=== PATIENT | male | born 1955 | race Caucasian/White ===

== ENCOUNTER 2023-11-11 08:28 | Inpatient (IN) ==
--- NOTE | 2023-11-11 08:39 | Emergency Department Note ---
Impression & Plan Acute blood loss anemia, Atrial fibrillation, [employer] current use of anticoagulant, Hematoma of left lower extremity ED Provider Note NAME: MALVIN ROMO AGE: 68 SEX: M : 1955 ARRIVES VIA: Walk-In INFORMANT: Patient, ED PROVIDER(S): Dante Pena MD CHIEF COMPLAINT: Leg swelling and pain MEDICAL DECISION MAKING: Patient presents due to concern for leg swelling and associated pain with significant ecchymosis to the left lower extremity. IV was established and blood work was obtained. Left lower extremity DVT ultrasound and nonvascular ultrasound obtained and the patient did receive IV morphine. Upon reassessment the patient did have improvement in his leg pain. Patient has a normal white count with hemoglobin of 8. I was able to review outpatient blood work per their [facility] portal which showed the patient did have a hemoglobin of 11 from October 21. Given this concern with patient being therapeutic on his Coumadin with an INR of 2.6 I did speak with the on-call hospitalist Mylene Parnell PA-C. The patient was admitted for observation. Ultrasound does not show any evidence of hematoma but does have swelling. No evidence of DVT. Patient's creatinine is reportedly at baseline as his most recent outpatient blood work showed a creatinine 2.3. Discussion w/ other healthcare providers: Bette Parnell PA-C and Dr. Santamaria [facility] medicine [facility] Prior /Outside records reviewed: None Differential diagnosis: Coagulopathy, hematoma, DVT, fracture, sprain, strain among others were considered Diagnostics, as interpreted by me: ECG: Normal sinus rhythm, rate of 85, normal intervals, normal axis no ST elevations. Cardiac monitoring: An order was placed for continuous cardiac monitoring. The monitor shows a rate of 85 with sinus rhythm. Patient was placed on pulse oximetry Medical decision rules: None Imaging studies: I informally interpreted the patient's vascular ultrasound which does not show obvious fluid collection with formal report to follow. HPI: Patient presents due to concern for left lower extremity swelling and bruising. The patient states that he was sent over from orthopedics and did have an outpatient procedure which included an injection to the left groin/hip area due to concern for chronic pain and associated arthritis. Patient is on aspirin Brilinta and Coumadin. Patient was told that they "hit a vein" and that he has had some associated swelling and bruising to the area. The patient does complain of increasing swelling as well as pain and discomfort. The patient does take Coumadin for known history of A-fib. He does take aspirin and Brilinta for known history of CAD most recently had a stent after a cardiac catheterization several weeks ago. The patient does have a prior history of multiple caths and stents in the past. Patient denies any falls or trauma. Patient denies any chest pains or shortness of breath no cough fevers or chills. PAST MEDICAL HISTORY: See Below PAST SURGICAL HISTORY: See Below SOCIAL HISTORY: See Below HOME MEDICATIONS: See Below ALLERGIES: See Below VITALS: See Below PHYSICAL EXAMINATION: GENERAL: NAD, non-toxic. EYE EXAM: Normal conjunctiva. PERRL, no anisocoria and EOM's grossly intact w/o pain. OROPHARYNX: Moist mucus membranes, grossly normal dentition. NECK: Trachea midline, no stridor. Supple, no nuchal rigidity, no adenopathy, non-tender. No signs of meningismus. FROM of the neck with good chin to chest and neck extension. LUNGS: Clear to auscultation. Normal chest wall mechanics. HEART: NSR, no MRG. ABDOMEN: Abdomen soft, non-tender, no masses, no rebound or guarding. BACK: No CVA TTP. SKIN: No rashes and no bruising. UPPER EXTREMITIES: Upper extremities are grossly normal. LOWER EXTREMITIES: Grossly normal, left greater than right lower extremity swelling with associated ecchymosis located to the medial and posterior aspect of the left lower extremity, good DP pulse no obvious erythema. NEURO EXAM: A&O x3, cranial nerves II-XII grossly intact, normal speech, moves all 4 extremities. 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 Beliefs That Will Affect Care: None marital status: Current Living Situation: Spouse Feels Safe at Home: Yes Assistive Devices: CPAP Allergies Allergies Allergy/AdvReac Type Severity Reaction Status Date / Time apixaban [From Eliquis] Allergy Unknown Verified 11/11/23 09:18 Beta-Blockers Allergy Palpitation Verified 11/11/23 09:18 (Beta-Adrenergic Bloc s hydromorphone [From Dilaudid] Allergy Itching Verified 11/11/23 09:18 naproxen Allergy Unknown Verified 11/11/23 09:18 verapamil Allergy Dizziness Verified 11/11/23 09:18 atorvastatin [From Lipitor] AdvReac Cramping Verified 11/11/23 09:18 of the Muscles diltiazem [From Cardizem] AdvReac Dizziness Verified 11/11/23 09:18 Home Meds Home Medications Medication Instructions Recorded Confirmed allopurinol 300 mg tablet 300 mg PO HS 11/11/23 11/11/23 aspirin 81 mg tablet,delayed 81 mg PO DAILY 11/11/23 11/11/23 release atorvastatin 80 mg tablet 80 mg PO QAM 11/11/23 11/11/23 cholecalciferol (vitamin D3) 25 25 mcg PO DAILY 11/11/23 11/11/23 mcg (1,000 unit) tablet (Vitamin D3) docusate sodium 100 mg capsule 100 mg PO QPM 11/11/23 11/11/23 (Colace) famotidine 20 mg tablet (Pepcid) 20 mg PO BID 11/11/23 11/11/23 furosemide 20 mg tablet (Lasix) 20 mg PO DAILY 11/11/23 11/11/23 gabapentin 600 mg tablet 600 mg PO HS 11/11/23 11/11/23 (Neurontin) lisinopril 10 mg tablet 10 mg PO BID 11/11/23 11/11/23 magnesium glycinate 200 mg PO BID 11/11/23 11/11/23 melatonin 10 mg tablet 10 mg PO HS 11/11/23 11/11/23 metoprolol succinate 25 mg 25 mg PO BID 11/11/23 11/11/23 tablet,extended release 24 hr (Toprol XL) ticagrelor 90 mg tablet (Brilinta) 90 mg PO BID 11/11/23 11/11/23 warfarin 2 mg tablet 2 mg PO Q OTHER DAY 11/11/23 11/11/23 warfarin 3 mg tablet 3 mg PO Q OTHER DAY 11/11/23 11/11/23 Results & Data (ED) Vital Signs Vital Signs - 24 hr 11/11/23 08:35 11/11/23 09:30 11/11/23 10:29 Temperature 36.2 C L Temperature Source Temporal Artery Scan Pulse Rate 107 H 80 Pulse Rate [Left Finger] 73 Pulse Rhythm Regular Respiratory Rate 20 18 12 Blood Pressure 106/68 Blood Pressure [Right Arm] 107/65 Blood Pressure Mean 80 Blood Pressure Mean [Right Arm] 79 Blood Pressure Position [Right Arm] Sitting Pulse Oximetry 98 98 94 Oxygen Delivery Method Room Air Room Air Room Air Sepsis Recent Fever Within 48 Hours No Sepsis New/Unexplained Change in Mental Status N/A Sepsis Action Taken by Nursing No Action Required Home Medications Current Medication List: was personally reviewed by me Laboratory Data Attestation: I reviewed the patient's lab results. 11/11/23 14:55 11/11/23 09:06 Lab Results 11/11/23 Range/Units 09:06 WBC 7.62 (4.8-10.8) K/ul RBC 2.88 L (4.70-6.10) M/uL Hgb 8.0 L (14.0-18.0) g/dl Hct 26.4 L (42.0-52.0) % MCV 91.7 (80.0-100.0) fL MCH 27.8 (25.0-34.0) pg MCHC 30.3 L (32.0-36.0) g/dL RDW Std Deviation 57.9 H (36.4-46.3) fL RDW Coeff of Gene 17.3 H (11.5-14.5) % Plt Count 241 (130-400) K/uL MPV 8.8 L (9.4-12.4) fL Immature Gran % (Auto) 0.5 % Neut % (Auto) 61.6 % Lymph % (Auto) 23.9 % [place] % (Auto) 9.3 % Eos % (Auto) 4.2 % Baso % (Auto) 0.5 % Neut # (Auto) 4.69 (1.40-6.50) K/uL Lymph # (Auto) 1.82 (1.20-3.40) K/uL [place] # (Auto) 0.71 H (0.11-0.59) K/uL Eos # (Auto) 0.32 (0.00-0.50) K/uL Baso # (Auto) 0.04 (0.00-0.20) K/uL Immature Gran # (Auto) 0.04 (0.01-0.20) K/uL Absolute Nucleated RBC 0.02 (0.00-0.12) K/uL Nucleated RBC % (auto) 0.3 % PT 26.4 H (9.0-12.0) Seconds INR 2.6 H (0.9-1.1) Sodium 138 (136-145) mmol/L Potassium 4.1 (3.5-5.1) mmol/L Chloride 107 (98-107) mmol/L Carbon Dioxide 24 (21-32) mmol/L Anion Gap 7 (3-11) BUN 36 H (6-23) mg/dl Creatinine 2.09 H (0.6-1.4) mg/dl Est Cr Clr Drug Dosing 39.9 ml/min Est GFR ( Amer) 36.6 ml/min Est GFR (Non-Af Amer) 31.6 ml/min BUN/Creatinine Ratio 17.2 (10-20) Glucose 115 H (70-99(Fasting)) mg/dl Calcium 8.7 (8.6-10.3) mg/dl Magnesium 2.0 (1.7-2.4) mg/dl Total Bilirubin 1.3 H (0.2-1.0) mg/dl AST 16 (13-39) U/L ALT 13 (7-52) U/L Alkaline Phosphatase 79 (34-104) U/L Total Protein 6.4 (6.0-8.3) gm/dl Albumin 3.6 (3.4-5.0) gm/dl Globulin 2.8 (2.5-4.0) gm/dl Albumin/Globulin Ratio 1.3 (0.9-2) TSH 3.288 (0.300-4.500) uIu/ml Administered Medications Discontinued Medications Acetaminophen (Acetaminophen 500 Mg Tab) 1,000 mg PO NOW STA Stop: 11/11/23 08:51 Last Admin: 11/11/23 09:12 Dose: 1,000 mg Documented By: HARRY Morphine Sulfate (Morphine Sulfate 4 Mg/Ml 1 Ml Carp\\Vial) 4 mg IV NOW STA Stop: 11/11/23 08:51 Last Admin: 11/11/23 09:13 Dose: 4 mg Documented By: HARRY Imaging Data Radiologist's Impression: Vascular Ultrasound 11/11/23 08:50 LEFT THIGH ULTRASOUND CLINICAL HISTORY: eval for hematoma COMPARISON STUDY: No previous studies for comparison. TECHNIQUE: Sonography of the left thigh at site of bruising and swelling was performed. FINDINGS: No well-defined fluid collection within the medial left thigh was identified to suggest hematoma. Subcutaneous edema is present. IMPRESSION: 1. No well-defined fluid collection within the left thigh to suggest hematoma by sonography. 2. Subcutaneous edema of the left thigh. ACT 112: Negative or not required by law. Electronically signed by: Reji Tran M.D. 11/11/2023 10:18 AM Venous Doppler Study 11/11/23 08:50 LEFT LOWER EXTREMITY VENOUS DOPPLER HISTORY: Left lower extremity swelling/eccchymosis COMPARISON STUDY: None. FINDINGS: There is normal compressibility, flow, and augmentation within the left lower extremity deep venous system. IMPRESSION: No DVT within the left lower extremity. ACT 112: Negative or not required by law. Electronically signed by: Maxime Quiroz M.D. 11/11/2023 10:19 AM Discharge Plan Visit Data Chief Complaint: Leg Injury/Pain Stated Complaint: L LEG PAIN/RCVD STEROID SHOT IN L HIP ED Provider: Dante Pena Discharge Problem: Acute blood loss anemia, Atrial fibrillation, [facility] current use of anticoagulant, Hematoma of left lower extremity Patient Disposition: Admitted As Inpatient Discharge Instructions Interventions: ED Discharge Assessment Last Done: 11/11/23 13:42 Discharge Problem: Atrial fibrillation Qualifiers: Atrial fibrillation type: unspecified Qualified Code(s): I48.91 - Unspecified atrial fibrillation Hematoma of left lower extremity Qualifiers: Encounter type: initial encounter Qualified Code(s): S80.12XA - Contusion of left lower leg, initial encounter
[2023-11-11] MEDS: ACETAMINOPHEN 500 MG TAB PO STA (09:12)
[2023-11-11] MEDS: MoRPHine SULFATE 4 MG/ML 1 ML CARP\\VIAL IV STA (09:13)
[2023-11-11 09:26] LABS: Basophils # (auto) 0.04 K/uL (0.00-0.20); Basophils % (auto) 0.5 %; Eosinophils # (auto) 0.32 K/uL (0.00-0.50); Eosinophils % (auto) 4.2 %; Hematocrit (blood only) 26.4 % (42.0-52.0); Immature Granulocytes # (auto) 0.04 K/uL (0.01-0.20); Immature Granulocytes % (auto) 0.5 %; Lymphocytes # (auto) 1.82 K/uL (1.20-3.40); Lymphocytes % (auto) 23.9 %; Mean Corpuscular Hemoglobin 27.8 pg (25.0-34.0); Mean Corpuscular Hgb Conc 30.3 g/dL (32.0-36.0); Mean Corpuscular Volume 91.7 fL (80.0-100.0); Mean Platelet Volume 8.8 fL (9.4-12.4); Monocytes # (auto) 0.71 K/uL (0.11-0.59); Monocytes % (auto) 9.3 %; Neutrophils # (auto) 4.69 K/uL (1.40-6.50); Neutrophils % (auto) 61.6 %; Nucleated RBC # (auto) 0.02 K/uL (0.00-0.12); Nucleated RBC % (auto) 0.3 %; Platelet Count 241 K/uL (130-400); RDW Coefficient of Variation 17.3 % (11.5-14.5); RDW Standard Deviation 57.9 fL (36.4-46.3); Red Blood Count 2.88 M/uL (4.70-6.10); White Blood Count 7.62 K/ul (4.8-10.8)
[2023-11-11 09:39] LABS: Albumin Globulin Ratio 1.3 (0.9-2); Albumin Level 3.6 gm/dl (3.4-5.0); BUN Creatinine Ratio 17.2 (10-20); Bilirubin,Total 1.3 mg/dl (0.2-1.0); Calcium 8.7 mg/dl (8.6-10.3); Creatinine Clr Calc Pharmacy 39.9 ml/min; Est GFR (African American) 36.6 ml/min; Est GFR (Non-African American) 31.6 ml/min; Globulin 2.8 gm/dl (2.5-4.0); Potassium 4.1 mmol/L (3.5-5.1); Total Protein 6.4 gm/dl (6.0-8.3)
[2023-11-11 09:50] LABS: INR 2.6 (0.9-1.1); Prothrombin Time 26.4 Seconds (9.0-12.0)
[2023-11-11 09:53] LABS: Thyroid Stimulating Hormone 3.288 uIu/ml (0.300-4.500)
--- NOTE | 2023-11-11 10:19 | Ultrasound Report ---
LEFT THIGH ULTRASOUND CLINICAL HISTORY: eval for hematoma COMPARISON STUDY: No previous studies for comparison. TECHNIQUE: Sonography of the left thigh at site of bruising and swelling was performed. FINDINGS: No well-defined fluid collection within the medial left thigh was identified to suggest hem atoma. Subcutaneous edema is present. IMPRESSION: 1. No well-defined fluid collection within the left thigh to suggest hematoma by sonography. 2. Subcutaneous edema of the left thigh. ACT 112: Negative or not required by law. Electronically signed by: Reji Tran M.D. 11/11/2023 10:18 AM
--- NOTE | 2023-11-11 10:20 | Ultrasound Report ---
LEFT LOWER EXTREMITY VENOUS DOPPLER HISTORY: Left lower extremity swelling/eccchymosis COMPARISON STUDY: None. FINDINGS: There is normal compressibility, flow, and augmentation within the left lower extremity nusrat p venous system. IMPRESSION: No DVT within the left lower extremity. ACT 112: Negative or not required by law. Electronically signed by: Maxime Quiroz M.D. 11/11/2023 10:19 AM
[2023-11-11] MEDS ORDERED: MoRPHine SULFATE 4 MG/ML 1 ML CARP\\VIAL IV PRN (11:42)
--- NOTE | 2023-11-11 12:26 | History & Physical Report ---
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 Acute on chronic anemia in setting of blood loss due to use of anticoagulants and recent left intra-articular hip injection Admit to telemetry Hemoglobin on 10/21 was 7.5, today 8.0 Patient was typed and crossed Blood consent obtained by Dr. Santamaria Tranfuse if hgb < 7 Warfarin, INR 2.6 will not give Vit k at this time but will be considered if hgb is downtrending unable to interrupt ASA, brilinta as pt recently had coronary intervention 10/2023 at [facility] Consult orthopedics Dr. Farias for further recommendations regarding possible hematoma CAD with history of multiple coronary inventions, most recently October 2023 patient underwent LAD angioplasty secondary to in-stent restenosis of LAD HTN HLD He follows [facility] cardiology Will obtain records, recent cath report On ASA, Brilinta, statin, lisinopril and metoprolol PAF Regular rate and rhythm On warfarin, continue metoprolol monitor on tele History of DVT/PE Warfarin on hold Follow INR CKD stage III Presence of left AV fistula Previously required hemodialysis Currently off HD, following nephrology Baseline creatinine 2.0 Avoid nephrotoxic agent Morbid obesity, BMI 40.1 Encourage diet lifestyle medications DVT prophylaxis: Warfarin on hold, INR 2.6 FULL CODE PCP: Memo Mancilla Dispo: admit to Tele, PT/OT consulted Pt was seen and examined in collaboration with Dr. Santamaria, please see addendum A total of 76 minutes was spent coordinating, documenting, and providing care for this patient excluding time spent in the performance of separately billed services. This included personally viewing all current laboratories and imaging studies, medication reconciliation, outpatient chart review, and discussion with specialists. History of Present Illness Chief Complaint: L leg pain, bruising for a few days. Primary Care Provider: Memo Mancilla This is a 61 male who has a significant past medical history of PAF anticoagulated on warfarin, history of DVT/PE, CAD with history of multiple angioplasties most recently October 2023 secondary to stent restenosis on ASA and Brilinta, CKD-3, HTN, HLD presents to ED secondary to left leg pain and bruising for the last few days. He had a hip injection on Thursday on 11/06 at [facility]. He states he was told he was getting an ultrasound to see where they wanted to inject. He received an injection of lidocaine and dexamethasone. He was not instructed to hold any of his anticoagulants or antiplatelets prior to injection. He is currently on warfarin, asa and brilinta. He complains of Pain to his L leg and, "feeling like it is going to burst." He does feel like it gives out on him from time to time. Generally he feels weak but he denies f/c/s, chest pain, sob, n/v/d, abd pain. He further denies pre syncope, lightheaded/dizziness. is at bedside who helps elicit history. She also pulls up patients online medical record via [facility]. His last lab work on 10/21 revealed a hgb of 11.5 and cr 2.18. Last heart cath in October in 2023 in which he required stent placement. Per report patient had notable and heavily calcified in-stent restenosis of LAD and therefore underwent angioplasty. Also noted was a 99% severe OM disease and patent RCA stents. Ejection fraction was normal. He also had a heart cath in February of 2023. He states he had appox 10 stents total throughout his life time. He is moving bowels and passing urine w/o difficulty. When he moves his bowels he states he sees, "red in the toilet every once in a while." He has hx of colonoscopy 1 year ago and had some polyps removed. He has LUE AVF due to previously requiring HD, but currently is off of this. 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 His [facility] Senior Product Development Engineer is Dr Brizuela. He does not see any providers locally. In ED patient remained hemodynamically stable. His hemoglobin and hematocrit was 8.0 and 26.4 respectively. His INR was therapeutic at 2.6. His kidney function is at baseline with a BUN of 36 and creatinine 2.09. Lower extremity ultrasound was negative for DVT and no evidence of hematoma. Allergies Allergy/AdvReac Type Severity Reaction Status Date / Time apixaban [From Eliquis] Allergy Unknown Verified 11/11/23 09:18 Beta-Blockers Allergy Palpitation Verified 11/11/23 09:18 (Beta-Adrenergic Bloc s hydromorphone [From Dilaudid] Allergy Itching Verified 11/11/23 09:18 naproxen Allergy Unknown Verified 11/11/23 09:18 verapamil Allergy Dizziness Verified 11/11/23 09:18 atorvastatin [From Lipitor] AdvReac Cramping Verified 11/11/23 09:18 of the Muscles diltiazem [From Cardizem] AdvReac Dizziness Verified 11/11/23 09:18 Home Medications Medication Instructions Recorded Confirmed Type allopurinol 300 mg tablet 300 mg PO HS 11/11/23 11/11/23 History aspirin 81 mg tablet,delayed 81 mg PO DAILY 11/11/23 11/11/23 History release atorvastatin 80 mg tablet 80 mg PO QAM 11/11/23 11/11/23 History cholecalciferol (vitamin D3) 25 25 mcg PO DAILY 11/11/23 11/11/23 History mcg (1,000 unit) tablet (Vitamin D3) docusate sodium 100 mg capsule 100 mg PO QPM 11/11/23 11/11/23 History (Colace) famotidine 20 mg tablet (Pepcid) 20 mg PO BID 11/11/23 11/11/23 History furosemide 20 mg tablet (Lasix) 20 mg PO DAILY 11/11/23 11/11/23 History gabapentin 600 mg tablet 600 mg PO HS 11/11/23 11/11/23 History (Neurontin) lisinopril 10 mg tablet 10 mg PO BID 11/11/23 11/11/23 History magnesium glycinate 200 mg PO BID 11/11/23 11/11/23 History melatonin 10 mg tablet 10 mg PO HS 11/11/23 11/11/23 History metoprolol succinate 25 mg 25 mg PO BID 11/11/23 11/11/23 History tablet,extended release 24 hr (Toprol XL) ticagrelor 90 mg tablet (Brilinta) 90 mg PO BID 11/11/23 11/11/23 History warfarin 2 mg tablet 2 mg PO Q OTHER DAY 11/11/23 11/11/23 History warfarin 3 mg tablet 3 mg PO Q OTHER DAY 11/11/23 11/11/23 History Past Med/Surg History Medical History (Updated 11/11/23 @ 14:23 by Bette Parnell PA-C) History of hemodialysis temporary Hx of pulmonary embolus Hx of deep venous thrombosis 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 Atrial fibrillation CAD (coronary artery disease) HLD (hyperlipidemia) HTN (hypertension) Surgical History (Updated 11/11/23 @ 12:28 by Bette Parnell PA-C) History of inferior vena caval filter placement AV fistula LUE History of coronary artery stent placement History of back surgery Social History (Updated 11/11/23 @ 12:19 by Betet Parnell PA-C) Smoking Status: Never smoker Hx Alcohol Use: No Hx Substance Use: No Preferred Language: Bangladeshi Communication Ability: Effective [employer] Required: No Beliefs That Will Affect Care: None marital status: Current Living Situation: Spouse Feels Safe at Home: Yes Assistive Devices: CPAP Review of Systems Review of Systems: All systems reviewed & are unremarkable except as noted in HPI & below Physical Exam Physical Exam: please refer to Dr. Santamaria addendum for physical exam findings. Results & Data Results & Data Vital Signs (Past 12 Hours) Vital Signs Temp Pulse Pulse Resp BP BP Pulse Ox 11/11/23 10:29 73 12 107/65 94 11/11/23 09:30 80 18 98 11/11/23 08:35 36.2 C L 107 H 20 106/68 98 O2 Del Method 11/11/23 10:29 Room Air 11/11/23 09:30 Room Air 11/11/23 08:35 Room Air Laboratory Results I have independently reviewed and interpreted patient's admitting labs including CBC, CMP, PT/INR, mag and TSH. Diagnostic Findings Vascular Ultrasound 11/11/23 08:50 LEFT THIGH ULTRASOUND CLINICAL HISTORY: eval for hematoma COMPARISON STUDY: No previous studies for comparison. TECHNIQUE: Sonography of the left thigh at site of bruising and swelling was performed. FINDINGS: No well-defined fluid collection within the medial left thigh was identified to suggest hematoma. Subcutaneous edema is present. IMPRESSION: 1. No well-defined fluid collection within the left thigh to suggest hematoma by sonography. 2. Subcutaneous edema of the left thigh. ACT 112: Negative or not required by law. Electronically signed by: Reji Tran M.D. 11/11/2023 10:18 AM Venous Doppler Study 11/11/23 08:50 LEFT LOWER EXTREMITY VENOUS DOPPLER HISTORY: Left lower extremity swelling/eccchymosis COMPARISON STUDY: None. FINDINGS: There is normal compressibility, flow, and augmentation within the left lower extremity deep venous system. IMPRESSION: No DVT within the left lower extremity. ACT 112: Negative or not required by law. Electronically signed by: Maxime Quiroz M.D. 11/11/2023 10:19 AM Medications Administered Medication List Discontinued Medications Acetaminophen (Acetaminophen 500 Mg Tab) 1,000 mg PO NOW STA Stop: 11/11/23 08:51 Last Admin: 11/11/23 09:12 Dose: 1,000 mg Documented By: HARRY Morphine Sulfate (Morphine Sulfate 4 Mg/Ml 1 Ml Carp\\Vial) 4 mg IV NOW STA Stop: 11/11/23 08:51 Last Admin: 11/11/23 09:13 Dose: 4 mg Documented By: HARRY ECG Additional Comments: I have independently reviewed and interpreted patient's admitting EKG which revealed: 85bpm, NSR< no St or T wave changes COVID-19 Results Results COVID-19 Adm Lab Results: RBC 2.88 M/uL (4.70-6.10) L 11/11/23 WBC 7.62 K/ul (4.8-10.8) 11/11/23 Hgb 8.0 g/dl (14.0-18.0) L 11/11/23 Hct 26.4 % (42.0-52.0) L 11/11/23 Plt Count 241 K/uL (130-400) 11/11/23 Neutrophils (%) (Auto) 61.6 % 11/11/23 Lymphocytes (%) (Auto) 23.9 % 11/11/23 Monocytes # (Auto) 0.71 K/uL (0.11-0.59) H 11/11/23 Eosinophils # (Auto) 0.32 K/uL (0.00-0.50) 11/11/23 Immature Granulocyte % (Auto) 0.5 % 11/11/23 Neutrophils # (Auto) 4.69 K/uL (1.40-6.50) 11/11/23 Lymphocytes # (Auto) 1.82 K/uL (1.20-3.40) 11/11/23 Monocytes # (Auto) 0.71 K/uL (0.11-0.59) H 11/11/23 Eosinophils # (Auto) 0.32 K/uL (0.00-0.50) 11/11/23 Basophils # (Auto) 0.04 K/uL (0.00-0.20) 11/11/23 Immature Granulocyte # (Auto) 0.04 K/uL (0.01-0.20) 4 Na 138 mmol/L (136-145) 11/11/23 K 4.1 mmol/L (3.5-5.1) 11/11/23 Cl 107 mmol/L (98-107) 11/11/23 CO2 24 mmol/L (21-32) 11/11/23 Anion Gap 7 (3-11) 11/11/23 BUN 36 mg/dl (6-23) H 11/11/23 Creatinine 2.09 mg/dl (0.6-1.4) H 11/11/23 BUN/Creatinine Ratio 17.2 (10-20) 11/11/23 Glucose Level 115 mg/dl (70-99(Fasting)) H 11/11/23 Ca 8.7 mg/dl (8.6-10.3) 11/11/23 Total Bilirubin 1.3 mg/dl (0.2-1.0) H 11/11/23 AST/SGOT 16 U/L (13-39) 11/11/23 ALT/SGPT 13 U/L (7-52) 11/11/23 Alkaline Phosphatase 79 U/L (34-104) 11/11/23 Total Protein 6.4 gm/dl (6.0-8.3) 11/11/23 Albumin 3.6 gm/dl (3.4-5.0) 11/11/23 Globulin 2.8 gm/dl (2.5-4.0) 11/11/23 Albumin/Globulin Ratio 1.3 (0.9-2) 11/11/23 INR 2.6 (0.9-1.1) H 11/11/23 Code Status & VTE Plan Code Status FULL CODE Supervising Physician Co-Signing Physician Notes I have seen and examined the patient and have discussed the case with the provider above. I have reviewed the advanced practitioner's documentation, and I agree with, and take responsibility for that plan of care. Patient is a 68-year-old man on multiple blood thinners including warfarin for paroxysmal atrial fibrillation and history of provoked DVT/PE several years ago and dual antiplatelet therapy including aspirin and Brilinta after significant in-stent restenosis was fixed with angioplasty and repeat stenting just last month. He subsequently underwent a hip injection 6 days ago with significant bleeding and subsequent anemia. He denies any shortness of breath or chest pain and denies lightheadedness. He denies any pain in his foot or paresthesia and feels he is getting good blood flow to his foot but the pain in his thigh feels "like it is going to explode." He has been taking Tylenol successfully to control his pain at home prior to arrival. expressed concerned about a history of addiction to pain medication prior to his back surgery several years ago. Hemoglobin on his [facility] records was greater than 11 on October 21, now hemoglobin is 8 with a hematocrit of 26.4. On exam he is morbidly obese and in no acute distress. He is mentating clearly. CV exam reveals a mild 3 out of 6 systolic ejection murmur on LSB. S1-S2 heard with regular rate and rhythm. Lungs are clear to auscultation bilaterally. Abdomen is soft nontender nondistended. Fistula noted in left upper extremity. He has significant purple ecchymosis on his left outer upper thigh over the greater trochanteric area extending to the lateral gluteus and around the front into the inguinal area. There is significant dark purple ecchymosis in the medial left thigh with ecchymosis extending down past the knee in a distal direction to the calf. EKG confirms sinus rhythm today. Lab work also noted above includes INR of 2.6, creatinine of 2.09 is reported to be his baseline. Records were requested but are unavailable today. Outpatient BMP from [facility] was reviewed from mid October showing a creatinine of 2.1 at that time. Lab work is otherwise unremarkable today. A venous Doppler study revealed no DVT in the left lower extremity. A left thigh ultrasound revealed no well-defined fluid collection in the left thigh to suggest hematoma by sonography. 1. Acute blood loss anemia in the setting of anticoagulants post procedure- agree with holding warfarin at this time. Cannot hold dual antiplatelet therapy given significant cardiovascular disease and recent stent placement just a couple weeks ago. Continue supportive care for pain and trend H&H for further blood loss. He was consented for blood products should the H&H become critical. He is currently asymptomatic. Continue cautious use of narcotics given history of abuse in the past. 2. Morbid obesity 3. CKD stage III-patient noted to have a fistula in the left upper extremity but is not on dialysis at this time. 4. Paroxysmal atrial fibrillation-hold warfarin. Rate is controlled and noted adverse reactions to beta-blockers and calcium channel blockers . patient follows with an outpatient professor of family medicine-Ivan at [facility] I spent a total of 30minutes coordinating, documenting, and providing care for this patient excluding time spent in the performance of separately billed services. DO Rosalio
[2023-11-11] MEDS ORDERED: SODIUM CHLORIDE 0.9% 250 ML IV PRN (13:20)
[2023-11-11] MEDS ORDERED: POLYETHYLENE (MIRALAX) 17 GM PACK PO PRN (13:51)
--- NOTE | 2023-11-11 15:01 | Electrocardiogram Report ---
Test Reason : Blood Pressure : / mmHG Vent. Rate : 085 BPM Atrial Rate : 085 BPM P-R Int : 164 ms QRS Dur : 088 ms QT Int : 378 ms P-R-T Axes : 030 003 077 degrees QTc Int : 449 ms Normal sinus rhythm Normal ECG No previous ECGs available Confirmed by Dejuan Velasco ([id number]) on 11/11/2023 3:01:23 PM Referred By: REFERRED SELF Confirmed By:Dejuan Velasco
[2023-11-11 15:14] LABS: Hematocrit (blood only) 26.6 % (42.0-52.0); Hemoglobin 8.2 g/dl (14.0-18.0)
[2023-11-11] MEDS: oxyCODONE HCL IR 5 MG TAB (IMMEDIATE RELEASE) PO PRN (16:59)
[2023-11-11] MEDS: ACETAMINOPHEN 325 MG TAB PO SCH (16:59)
[2023-11-11] MEDS: METOPROLOL SUCC 25MG EXT REL TAB PO SCH (20:46)
[2023-11-11] MEDS: FAMOTIDINE 20 MG TAB PO SCH (20:47)
[2023-11-11] MEDS: TICAGRELOR 90 MG TAB PO SCH (20:47)
[2023-11-11] MEDS: GABAPENTIN 600 MG TAB PO SCH (20:48)
[2023-11-11] MEDS: DOCUSATE SODIUM 100 MG CAP PO SCH (20:48)
[2023-11-11] MEDS: MELATONIN 3 MG TAB PO SCH (20:48)
[2023-11-11] MEDS: allopurinoL 300 MG TAB PO SCH (20:55)
[2023-11-11 21:01] LABS: Hematocrit (blood only) 24.5 % (42.0-52.0); Hemoglobin 7.7 g/dl (14.0-18.0)
[2023-11-12 06:03] LABS: Hematocrit (blood only) 24.3 % (42.0-52.0); Hemoglobin 7.2 g/dl (14.0-18.0); Mean Corpuscular Hemoglobin 27.5 pg (25.0-34.0); Mean Corpuscular Hgb Conc 29.6 g/dL (32.0-36.0); Mean Corpuscular Volume 92.7 fL (80.0-100.0); Mean Platelet Volume 8.6 fL (9.4-12.4); Platelet Count 208 K/uL (130-400); RDW Coefficient of Variation 17.3 % (11.5-14.5); RDW Standard Deviation 58.2 fL (36.4-46.3); Red Blood Count 2.62 M/uL (4.70-6.10); White Blood Count 6.73 K/ul (4.8-10.8)
[2023-11-12 06:18] LABS: BUN Creatinine Ratio 16.3 (10-20); Calcium 8.2 mg/dl (8.6-10.3); Creatinine Clr Calc Pharmacy 39.2 ml/min; Est GFR (African American) 38.1 ml/min; Est GFR (Non-African American) 32.9 ml/min; Potassium 4.4 mmol/L (3.5-5.1)
[2023-11-12 06:33] LABS: INR 2.6 (0.9-1.1); Prothrombin Time 26.6 Seconds (9.0-12.0)
[2023-11-12] MEDS ORDERED: SODIUM CHLORIDE 0.9% 250 ML IV PRN (08:15)
[2023-11-12] MEDS: ATORVASTATIN 40 MG TAB PO SCH (08:36)
[2023-11-12] MEDS: CHOLECALCIFEROL 25 MCG (1000 UNITS) TAB PO SCH (08:44)
[2023-11-12] MEDS: ACETAMINOPHEN 325 MG TAB PO ONE (08:44)
[2023-11-12] MEDS ORDERED: ASPIRIN 81 MG ECTAB PO SCH (09:00)
[2023-11-12] MEDS: PHYTONADIONE 5 MG in DEXTROSE 5% 50 ML IV ONE (09:12)
[2023-11-12] MEDS: SODIUM CHLORIDE 0.9% 1,000 ML IV SCH (09:13)
--- NOTE | 2023-11-12 09:37 | CT Scan Report ---
CT SCAN OF THE LEFT TIBIA AND FIBULA WITHOUT IV CONTRAST CLINICAL HISTORY: Left lower extremity bruising. COMPARISON STUDY: No priors. TECHNIQUE: CT scan of the left tibia and fibula is performed from the distal femur to the foot. Image s are reviewed in the axial, sagittal, and coronal planes. IV contrast was not administered for this examination. A dose lowering technique was utilized adhering to the principles of ALARA. FINDINGS: The skeletal structures are osteopenic. There is no evidence of tibial or fibular fracture. The knee and ankle joints appear maintained. There is a knee joint effusion. There is generalized at rophy of the regional musculature. Subcutaneous soft tissue edema and fluid is seen throughout the le ft lower extremity. No organized/drainable fluid collection is identified. There is no fluid collecti on, typical for hematoma. A large dorsal heel spur is noted. There is thickening and tendinopathy of the Achilles tendon. No soft tissue gas is identified throughout the left lower extremity. There is a therosclerotic calcification of the regional arteries. IMPRESSION: 1. No acute bony abnormality is identified. 2. Subcutaneous soft tissue edema and fluid is seen throughout the left calf. No organized fluid jaz ection is identified. 3. Knee joint effusion. ACT 112: Negative or not required by law. Dictated: 11/12/2023 9:23 AM Transcribed: 11/12/2023 9:30 AM Slim [id number] [email or web address] Electronically signed by: Mahendra Leonardo M.D. 11/12/2023 9:35 AM
--- NOTE | 2023-11-12 10:23 | CT Scan Report ---
ABDOMEN AND PELVIS CT WITHOUT CONTRAST; CT LEFT FEMUR HISTORY: Acute generalized abdominal and left lower quadrant pain with probable hematoma anemia, r/o retroperitoneal hemorrhage TECHNIQUE: Multiaxial CT images of the abdomen and pelvis and left femur were performed without contr ast. A dose lowering technique was utilized adhering to the principles of ALARA. COMPARISON STUDY: Ultrasound 11/11/2023. FINDINGS: CT ABDOMEN AND PELVIS: Mild cardiomegaly with decreased attenuation of the cardiac blood pool, suggestive of anemia. Coronar y arterial calcifications. Calcified granuloma of the basal right lower lobe. Mild subsegmental bibas ilar atelectasis. Low-suspicion for a millimeter solid nodule of the lingula, image 28. No free air. The unenhanced spleen, pancreas and left adrenal gland are unremarkable. A 9 mm right adrenal myeloli xavier. Unremarkable gallbladder and liver. Mildly atrophic kidneys with cortical thinning. There are s everal nonobstructing calculi of the bilateral kidneys measuring up to 4 mm on the left and 5 mm on t he right. There is a simple 2 cm cyst of the inferior pole right kidney. There are additional subcent imeter lesions of the kidneys including a 9 mm hyperdense lesion of the left kidney on image 159 sugg estive of a proteinaceous or hemorrhagic cyst. No ureteral calculi or hydronephrosis. Mild prostatome justina. Mildly distended urinary bladder. Atherosclerosis of the aorta without aneurysm. No lymphadenopathy. No bowel obstruction or bowel wall thickening. Small fat-filled umbilical hernia with diastases of 2 cm. Colonic diverticulosis. Noninf lamed appendix. No acute retroperitoneal hemorrhage is identified. Moderate degeneration of the SI tia ints. No acute fracture. There is posterior decompression at L1-S1 with posterior interbody tay and s crew fusion hardware extending from T11-S2. There is lucency surrounding the screws at almost every l evel with posterior displacement of the upper hardware, compatible with loosening. CT LEFT FEMUR: There is an acute intramuscular hematoma involving the sartorius, which measures up to approximately 7.9 x 4.9 x 20 cm. No definite active extravasation is identified. Moderate subcutaneous edema/hemorr babar within the thigh. [id number] joint effusion of the knee. No acute fracture or subluxation. There is moderate osteoarthritis of the hip with tricompartmental o steoarthritis of the knee, severe within the medial compartment. IMPRESSION: 1. There is an acute intramuscular hematoma involving the left sartorius measuring up to 20 cm in sil gth with associated moderate subcutaneous edema/hemorrhage of the left thigh. 2. No acute fracture or dislocation. 3. No acute intra-abdominal or intrapelvic abnormality, specifically there is no acute retroperitonea l hemorrhage. 4. Postoperative changes of the spine with extensive hardware loosening. 5. Incidental findings as above. ACT 112: Negative or not required by law. The above report was generated using voice recognition software. It may contain grammatical, syntax o r spelling errors. Dictated: 11/12/2023 9:37 AM Transcribed: 11/12/2023 10:02 AM Slim [id number] [email or web address] Electronically signed by: Corey Natarajan M.D. 11/12/2023 10:22 AM
--- NOTE | 2023-11-12 10:38 | Orthopedic Consultation ---
Date of Service November 12, 2023 Assessment & Plan (1) Hematoma of left lower extremity: 1. Continue current hospital course of treatment 2. No surgery to evacuate the hematoma is necessary given his current physical examination and diffuseness of the hematoma 3. No need for orthopedic follow up in the office I, Dr. Danny Farias, saw and examined the patient at bedside. I agree with the above plan. History of Present Illness Reason for Consultation: . Requesting Physician: . Attending Physician: Sebastian Onofre MD Patient is a 61 y/o with multiple health comorbidities. He is currently anticoagulated with coumadin and aspirin for PAF. He has had multiple heart stents placed. He states that he recently had an intraarticular hip injection in the left hip in October 2023. He did not stop his anticoagulants before the injection. He developed a significant and diffuse hematoma of his LLE. He was hospitalized for pain and to rule out compartment syndrome. Allergies Allergy/AdvReac Type Severity Reaction Status Date / Time apixaban [From Eliquis] Allergy Unknown Verified 11/11/23 09:18 Beta-Blockers Allergy Palpitation Verified 11/11/23 09:18 (Beta-Adrenergic Bloc s hydromorphone [From Dilaudid] Allergy Itching Verified 11/11/23 09:18 naproxen Allergy Unknown Verified 11/11/23 09:18 verapamil Allergy Dizziness Verified 11/11/23 09:18 atorvastatin [From Lipitor] AdvReac Cramping Verified 11/11/23 09:18 of the Muscles diltiazem [From Cardizem] AdvReac Dizziness Verified 11/11/23 09:18 Home Medications Medication Instructions Recorded Confirmed Type allopurinol 300 mg tablet 300 mg PO HS 11/11/23 11/11/23 History aspirin 81 mg tablet,delayed 81 mg PO DAILY 11/11/23 11/11/23 History release atorvastatin 80 mg tablet 80 mg PO QAM 11/11/23 11/11/23 History cholecalciferol (vitamin D3) 25 25 mcg PO DAILY 11/11/23 11/11/23 History mcg (1,000 unit) tablet (Vitamin D3) docusate sodium 100 mg capsule 100 mg PO QPM 11/11/23 11/11/23 History (Colace) famotidine 20 mg tablet (Pepcid) 20 mg PO BID 11/11/23 11/11/23 History furosemide 20 mg tablet (Lasix) 20 mg PO DAILY 11/11/23 11/11/23 History gabapentin 600 mg tablet 600 mg PO HS 11/11/23 11/11/23 History (Neurontin) lisinopril 10 mg tablet 10 mg PO BID 11/11/23 11/11/23 History magnesium glycinate 200 mg PO BID 11/11/23 11/11/23 History melatonin 10 mg tablet 10 mg PO HS 11/11/23 11/11/23 History metoprolol succinate 25 mg 25 mg PO BID 11/11/23 11/11/23 History tablet,extended release 24 hr (Toprol XL) ticagrelor 90 mg tablet (Brilinta) 90 mg PO BID 11/11/23 11/11/23 History warfarin 2 mg tablet 2 mg PO Q OTHER DAY 11/11/23 11/11/23 History warfarin 3 mg tablet 3 mg PO Q OTHER DAY 11/11/23 11/11/23 History Past Med/Surg History Medical History History of hemodialysis temporary Hx of pulmonary embolus 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 deep 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 Atrial fibrillation CAD (coronary artery disease) HLD (hyperlipidemia) HTN (hypertension) Surgical History History of inferior vena caval filter placement AV fistula LUE History of coronary artery stent placement History of back surgery Social History Smoking Status: Never smoker Hx Alcohol Use: No Hx Substance Use: No Preferred Language: Dominican Communication Ability: Effective 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 Physical Exam Patient examined at bedside. Resting comfortably. Diffuse eccymosis noted in upper thigh, knee, and LLE. Upper thigh and LLE are supple to palpation with no hardness. Good ROM at hip and knee. Able to dosiflex and plantarflex at the ankle. Pulses were palpated distally in the left foot. Otherwise neurovascularly intact Results & Data Results & Data Laboratory Results . Diagnostic Findings . PG Care Time/CCT Total # of Minutes Spent Total Time Spent with Patient: Total time spent is greater than 50% in coordination of care (as documented) at patient's floor/unit and/or counseling patient: Coding Level of Care Code 40332 IN/OBS CONSULT LVL 3,45M Diagnoses Hematoma of left lower extremity S80.12XA Encounter type: initial encounter (1) Hematoma of left lower extremity Encounter type: initial encounter Qualified Code(s): S80.12XA - Contusion of left lower leg, initial encounter
[2023-11-12] MEDS: PNEUMOCOCCAL VACCINE (PCV20) 20-VAL CONJ-DIP CRM/PF 0.5 ML SYR IM ONE (11:42)
--- NOTE | 2023-11-12 12:55 | Oncology Consultation ---
Date of Consultation November 12, 2023 Assessment & Plan (1) Hematoma of left lower extremity: At this point my recommendation would be holding anticoagulation even though it is necessary given the patient's cardiac history. Given that the patient is actively bleeding and had a huge hematoma on the left lower extremity we will be holding at least Coumadin. We would also recommend holding aspirin to prevent further bleeding. (2) Acute blood loss anemia: Continue to monitor H&H closely. Transfuse if the hemoglobin is less than 7 g/dL or if the patient is actively bleeding. Plan Hematology will continue to follow the patient and make appropriate recommendations. Thank you for this interesting hematological consult. A total of 60 minutes was spent in counseling, coordination of care and review of prior records History of Present Illness Attending Physician: Sebastian Onofre MD History of Present Illness The patient is a very pleasant 61-year-old male, past history of paroxysmal atrial fibrillation, currently on warfarin, has a history of DVT/PE, coronary artery disease, multiple angioplasties who is currently on aspirin, Brilinta, has CKD hypertension, hyperlipidemia came to the [facility] ER with left leg pain and bruising. He had a hip injection on November [address] [facility]. Generally fe els weak,. On admission he was noted to have hemoglobin of 8.2, hematocrit of 26.4. His INR was at 2.6. Creatinine at baseline is 2.09. Previously in October he had a hemoglobin of 11.5 and a creatinine of 2.18. He had a lower extremity ultrasound in [facility] ER which was negative for DVT, there was no evidence of any hematoma. The patient had a CT of the femur on 11/11/2023 which revealed an acute intramuscular hematoma involving the left sartorius muscle, measuring up to 20 cm in length. There was associated moderate subcutaneous edema and hemorrhage of the left thigh. Hematology has been consulted to assist in management of this patient with acute lower extremity bleeding who is currently on anticoagulation with warfarin, aspirin, Brilinta. Allergies Allergy/AdvReac Type Severity Reaction Status Date / Time apixaban [From Eliquis] Allergy Unknown Verified 11/11/23 09:18 Beta-Blockers Allergy Palpitation Verified 11/11/23 09:18 (Beta-Adrenergic Bloc s hydromorphone [From Dilaudid] Allergy Itching Verified 11/11/23 09:18 naproxen Allergy Unknown Verified 11/11/23 09:18 verapamil Allergy Dizziness Verified 11/11/23 09:18 atorvastatin [From Lipitor] AdvReac Cramping Verified 11/11/23 09:18 of the Muscles diltiazem [From Cardizem] AdvReac Dizziness Verified 11/11/23 09:18 Home Medications Medication Instructions Recorded Confirmed Type allopurinol 300 mg tablet 300 mg PO HS 11/11/23 11/11/23 History aspirin 81 mg tablet,delayed 81 mg PO DAILY 11/11/23 11/11/23 History release atorvastatin 80 mg tablet 80 mg PO QAM 11/11/23 11/11/23 History cholecalciferol (vitamin D3) 25 25 mcg PO DAILY 11/11/23 11/11/23 History mcg (1,000 unit) tablet (Vitamin D3) docusate sodium 100 mg capsule 100 mg PO QPM 11/11/23 11/11/23 History (Colace) famotidine 20 mg tablet (Pepcid) 20 mg PO BID 11/11/23 11/11/23 History furosemide 20 mg tablet (Lasix) 20 mg PO DAILY 11/11/23 11/11/23 History gabapentin 600 mg tablet 600 mg PO HS 11/11/23 11/11/23 History (Neurontin) lisinopril 10 mg tablet 10 mg PO BID 11/11/23 11/11/23 History magnesium glycinate 200 mg PO BID 11/11/23 11/11/23 History melatonin 10 mg tablet 10 mg PO HS 11/11/23 11/11/23 History metoprolol succinate 25 mg 25 mg PO BID 11/11/23 11/11/23 History tablet,extended release 24 hr (Toprol XL) ticagrelor 90 mg tablet (Brilinta) 90 mg PO BID 11/11/23 11/11/23 History warfarin 2 mg tablet 2 mg PO Q OTHER DAY 11/11/23 11/11/23 History warfarin 3 mg tablet 3 mg PO Q OTHER DAY 11/11/23 11/11/23 History Patient History Medical History History of hemodialysis temporary Hx of pulmonary embolus Hx of deep venous thrombosis 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 Atrial fibrillation CAD (coronary artery disease) HLD (hyperlipidemia) HTN (hypertension) Surgical History History of inferior vena caval filter placement AV fistula LUE History of coronary artery stent placement History of back surgery Social History Smoking Status: Never smoker Hx Alcohol Use: No Hx Substance Use: No Preferred Language: Faroese Communication Ability: Effective Tdp Displays Analyst Required: No Beliefs That Will Affect Care: None marital status: Current Living Situation: Spouse Feels Safe at Home: Yes Assistive Devices: CPAP Review of Systems Review of Systems: All systems reviewed & are unremarkable except as noted in HPI & below Constitutional: as per Subjective / HPI Eyes: as per Subjective / HPI Ear, Nose, Mouth, Throat: as per Subjective / HPI Respiratory: as per Subjective / HPI Cardiovascular: as per Subjective / HPI Gastrointestinal: as per Subjective / HPI Genitourinary: + as per Subjective / HPI Integumentary: as per Subjective / HPI Neurologic: as per Subjective / HPI Results & Data Vital Signs (Past 12 Hours) Vital Signs Temp Pulse Pulse Pulse Resp BP BP 11/12/23 12:13 36.2 C L 72 16 151/72 H 11/12/23 12:13 36.2 C L 72 16 151/72 H 11/12/23 11:30 36.5 C 72 12 137/67 11/12/23 10:30 36.7 C 72 13 133/76 11/12/23 10:00 36.5 C 66 11 L 120/74 11/12/23 09:45 36.4 C L 66 12 133/74 11/12/23 09:26 36.5 C 70 18 129/75 11/12/23 09:21 36.5 C 70 16 114/72 11/12/23 06:36 66 11/12/23 04:00 36.7 C 64 20 95/53 L Pulse Ox O2 Del Method O2 Flow Rate 11/12/23 12:13 96 Room Air 11/12/23 12:13 96 0 11/12/23 11:30 96 11/12/23 10:30 96 11/12/23 10:00 98 11/12/23 09:45 98 0 11/12/23 09:26 97 11/12/23 09:21 97 Room Air 11/12/23 06:36 11/12/23 04:00 92 Room Air (1) Hematoma of left lower extremity Encounter type: initial encounter Qualified Code(s): S80.12XA - Contusion of left lower leg, initial encounter
[2023-11-12 14:44] LABS: Hematocrit (blood only) 29.3 % (42.0-52.0); Hemoglobin 8.7 g/dl (14.0-18.0)
--- NOTE | 2023-11-12 16:22 | Hospitalist Progress Note ---
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 Left lower extremity hematoma, status post steroid injection on the hip Acute on chronic anemia in setting of blood loss in the setting of above Chronic Coumadin use for DVT, aspirin and Brilinta use for coronary disease, recent cardiac stent restenosis Admit to telemetry Hemoglobin on 10/21 was 7.5, today 8.0 Patient was typed and crossed Blood consent obtained by Dr. Rosalio Rain if hgb < 7 Warfarin, INR 2.6 will not give Vit k at this time but will be considered if hgb is downtrending unable to interrupt ASA, brilinta as pt recently had coronary intervention 10/2023 at [facility] Consult orthopedics Dr. Farias for further recommendations regarding possible hematoma 11/12 Hemoglobin trended down from 8.7, this morning 7.2 Patient has extensive left lower extremity hematoma INR is 2.6 CT abdomen and pelvis: No signs of retroperitoneal hemorrhage CT lower extremity: Intramuscular hematoma in the sartorius region, with surrounding hemorrhage In light of active bleeding, will order vitamin K 5 mg IV to reverse the INR Hold aspirin and Brilinta 1 unit of packed RBCs ordered, repeat hemoglobin 8.7 Repeat hemoglobin at 6 PM Hematology service consulted CAD with history of multiple coronary inventions, most recently October 2023 patient underwent LAD angioplasty secondary to in-stent restenosis of LAD HTN HLD He follows [facility] cardiology Will obtain records, recent cath report On ASA, Brilinta, statin, lisinopril and metoprolol -- Hold aspirin, Brilinta for the meantime in light of active bleeding, he moglobin trending down Will resume as soon as hemostasis has been achieved Will obtain input from hematology service as well PAF Regular rate and rhythm On warfarin, continue metoprolol --Reversal of Coumadin as per #1 History of DVT/PE --Reversal of Coumadin per #1 INR daily CKD stage III Presence of left AV fistula Previously required hemodialysis Currently off HD, following nephrology Baseline creatinine 2.0 Avoid nephrotoxic agent --Stable overall Morbid obesity, BMI 40.1 Encourage diet lifestyle medications DVT prophylaxis: Warfarin on hold in light of active bleeding, left lower extremity hematoma FULL CODE PCP: Memo Mancilla Dispo: Pending, will order PT and OT evaluation plan of care discussed with patient in detail and at length all questions answered He is understanding, agreeable, comfortable with the plan of care Admission and Anticipated Discharge Date Admission Date: November 11, 2023 Subjective Follow-up for left lower extremity hematoma in the setting of Coumadin, aspirin and Brilinta use, etc. Seen resting in bed, sitting up, comfortable, not in distress Very pleasant gentleman States he feels improved today overall States lower extremity, thigh pain is actually improving compared to yesterday Denies chest pain, dizziness, shortness of breath Denies other signs of bleeding, no melena or hematochezia No other new symptoms Review of Systems Review of Systems: all noted and negative except for above Physical Exam Physical Exam: General- oriented x 3, not in distress, speaks in sentences with no effort or accessory muscle use Eyes- anicteric Neck- no JVD Lungs- clear breath sounds bilaterally, no rales/wheezes Heart- normal rate, regular rhythm; no murmurs Abdomen- normal bowel sounds, nondistended, soft, nontender Extremities- Left lower extremity: Positive hematoma around the thigh, extending to the left lower leg mostly in the medial aspect Mild edema of the left lower leg, no warmth or tenderness Right lower extremity: Essentially normal Neuro- alert, oriented x 3; no gross focal neurologic deficits Skin- warm & dry Results & Data Results & Data Vital Signs (Past 12 Hours) Vital Signs Temp Pulse Pulse Resp BP BP Pulse Ox 11/12/23 15:20 36.4 C L 67 18 139/57 L 99 11/12/23 14:01 66 11/12/23 12:13 36.2 C L 72 16 151/72 H 96 11/12/23 12:13 36.2 C L 72 16 151/72 H 96 11/12/23 11:30 36.5 C 72 12 137/67 96 11/12/23 10:30 36.7 C 72 13 133/76 96 11/12/23 10:00 36.5 C 66 11 L 120/74 98 11/12/23 09:45 36.4 C L 66 12 133/74 98 11/12/23 09:26 36.5 C 70 18 129/75 97 11/12/23 09:21 36.5 C 70 16 114/72 97 11/12/23 06:36 66 O2 Del Method O2 Flow Rate 11/12/23 15:20 Room Air 11/12/23 14:01 11/12/23 12:13 Room Air 11/12/23 12:13 0 11/12/23 11:30 11/12/23 10:30 11/12/23 10:00 11/12/23 09:45 0 11/12/23 09:26 11/12/23 09:21 Room Air 11/12/23 06:36 (2) Hematoma of left lower extremity Encounter type: initial encounter Qualified Code(s): S80.12XA - Contusion of left lower leg, initial encounter (5) Atrial fibrillation Atrial fibrillation type: unspecified Qualified Code(s): I48.91 - Unspecified atrial fibrillation
[2023-11-12] MEDS: Heparin IV Adult Wt-Based Low-Dose *NO* INITIAL Bolus Protocol IV SCH (17:47)
[2023-11-12] MEDS: HEPARIN SODIUM/DEXTROSE 25,000 UNITS/500 ML BAG IV SCH (18:28)
[2023-11-12 18:29] LABS: Basophils # (auto) 0.03 K/uL (0.00-0.20); Basophils % (auto) 0.4 %; Eosinophils # (auto) 0.35 K/uL (0.00-0.50); Hematocrit (blood only) 29.1 % (42.0-52.0); Hemoglobin 8.9 g/dl (14.0-18.0); Immature Granulocytes # (auto) 0.04 K/uL (0.01-0.20); Immature Granulocytes % (auto) 0.6 %; Lymphocytes # (auto) 1.63 K/uL (1.20-3.40); Lymphocytes % (auto) 23.3 %; Mean Corpuscular Hemoglobin 27.7 pg (25.0-34.0); Mean Corpuscular Hgb Conc 30.6 g/dL (32.0-36.0); Mean Corpuscular Volume 90.7 fL (80.0-100.0); Mean Platelet Volume 8.9 fL (9.4-12.4); Monocytes # (auto) 0.52 K/uL (0.11-0.59); Monocytes % (auto) 7.4 %; Neutrophils # (auto) 4.44 K/uL (1.40-6.50); Neutrophils % (auto) 63.3 %; Platelet Count 238 K/uL (130-400); RDW Coefficient of Variation 18.6 % (11.5-14.5); RDW Standard Deviation 60.7 fL (36.4-46.3); Red Blood Count 3.21 M/uL (4.70-6.10); White Blood Count 7.01 K/ul (4.8-10.8)
[2023-11-12 18:57] LABS: INR 1.6 (0.9-1.1); Partial Thromboplastin Ratio 1.2; Partial Thromboplastin Time 33 Seconds (21-31); Prothrombin Time 17.5 Seconds (9.0-12.0)
[2023-11-13 01:07] LABS: Hematocrit (blood only) 25.4 % (42.0-52.0); Hemoglobin 8.1 g/dl (14.0-18.0)
[2023-11-13 01:27] LABS: ANTI-Xa, UFH(UnfractionatedHep 0.14 IU/ml (0.3-0.7)
[2023-11-13] MEDS: HEPARIN SOD (PORCINE) 1000 UNIT/ML IV ONE (02:01)
[2023-11-13 08:59] LABS: Basophils # (auto) 0.03 K/uL (0.00-0.20); Basophils % (auto) 0.4 %; Eosinophils # (auto) 0.34 K/uL (0.00-0.50); Eosinophils % (auto) 5.1 %; Hematocrit (blood only) 24.5 % (42.0-52.0); Hemoglobin 7.6 g/dl (14.0-18.0); Immature Granulocytes # (auto) 0.02 K/uL (0.01-0.20); Immature Granulocytes % (auto) 0.3 %; Lymphocytes # (auto) 1.67 K/uL (1.20-3.40); Lymphocytes % (auto) 24.9 %; Mean Corpuscular Hemoglobin 27.3 pg (25.0-34.0); Mean Corpuscular Volume 88.1 fL (80.0-100.0); Monocytes # (auto) 0.68 K/uL (0.11-0.59); Monocytes % (auto) 10.1 %; Neutrophils # (auto) 3.96 K/uL (1.40-6.50); Neutrophils % (auto) 59.2 %; Platelet Count 216 K/uL (130-400); RDW Coefficient of Variation 18.5 % (11.5-14.5); RDW Standard Deviation 59.6 fL (36.4-46.3); Red Blood Count 2.78 M/uL (4.70-6.10)
[2023-11-13 09:25] LABS: BUN Creatinine Ratio 14.7 (10-20); Calcium 8.2 mg/dl (8.6-10.3); Creatinine Clr Calc Pharmacy 36.3 ml/min; Est GFR (African American) 32.3 ml/min; Est GFR (Non-African American) 27.8 ml/min; Potassium 4.4 mmol/L (3.5-5.1)
[2023-11-13 09:34] LABS: Ovalocytes 1+; Polychromasia 1+; Tear Drop Cells 1+
[2023-11-13 09:50] LABS: ANTI-Xa, UFH(UnfractionatedHep 0.32 IU/ml (0.3-0.7); INR 1.2 (0.9-1.1); Prothrombin Time 13.3 Seconds (9.0-12.0)
--- NOTE | 2023-11-13 11:51 | CT Scan Report ---
CT tib/fib LT wo con HISTORY: 68 years-old Male ff up hematoma Follow-up study in a patient with an acute intramuscular h ematoma of the left sartorius. COMPARISON: CT abdomen and pelvis 11/12/2023, CT left femur 11/13/2023 TECHNIQUE: Multiple axial CT images of the tibia and fibula were obtained without the use of IV contr ast. A dose lowering technique was used consistent with the principals of ALARA. FINDINGS: Partially imaged joint effusion of the knee. Tricompartmental osteoarthritis of the knee, severe with in the medial compartment. There is at least mild osteoarthritis of the ankle. Moderate diffuse subcu taneous edema with arterial calcifications. No acute intramuscular hematoma of the lower leg. Tendons and ligaments are not well evaluated by CT technique. No acute fracture, dislocation, osseous erosio n or suspicious bone lesion. IMPRESSION: 1. No acute fracture or dislocation of the tibia or fibula. 2. Moderate diffuse subcutaneous edema. 3. No acute intramuscular hematoma identified within the lower leg. ACT 112: Negative or not required by law. The above report was generated using voice recognition software. It may contain grammatical, syntax o r spelling errors. Dictated: 11/13/2023 11:36 AM Transcribed: 11/13/2023 11:46 AM Mario [id number] [id number] Electronically signed by: Corey Natarajan M.D. 11/13/2023 11:50 AM
--- NOTE | 2023-11-13 12:15 | CT Scan Report ---
CT SCAN OF THE LEFT FEMUR WITHOUT IV CONTRAST CLINICAL HISTORY: Follow-up hematoma. COMPARISON STUDY: CT scan of the femur dated 11/12/2023. TECHNIQUE: CT scan of the left femur is performed from the bony pelvis to the knee. Images are review ed in the axial, sagittal, and coronal planes. IV contrast was not administered for this examination. A dose lowering technique was utilized adhering to the principles of ALARA. CT DOSE: 1241.03 mGy.cm FINDINGS: The skeletal structures are osteopenic. There is no evidence of left femoral fracture. The hip and knee joints are grossly maintained noting arthritic change. There is no evidence of avascular necrosis of the left femoral head. No lytic or blastic lesion is seen. There is a knee joint effusio n. Subcutaneous and deep soft tissue edema is seen throughout the left thigh. Again seen is a large i ntramuscular hematoma centered in the sartorius. This measures approximately 20 x 5 x 7 cm and contai ns hyperdense blood products. There is atherosclerotic calcification of the left femoral artery. Ther e is generalized atrophy of the regional musculature. Diverticulosis is noted in the partially imaged left colon. The prostate gland is enlarged and heterogeneous. The bladder is distended but otherwise normal as imaged. There is no left pelvic sidewall or inguinal lymphadenopathy. IMPRESSION: 1. No significant change in the appearance of a large intramuscular hematoma centered in the left anahi torius. This extends approximately 20 cm in craniocaudal length. Ultrasound should be used for furthe r follow-up. 2. Subcutaneous and deep soft tissue edema/fluid is seen throughout the left thigh. 3. No acute bony abnormality is seen involving the femur. 4. Left knee joint effusion. ACT 112: Negative or not required by law. Dictated: 11/13/2023 11:20 AM Transcribed: 11/13/2023 11:43 AM Mario [id number] [id number] Electronically signed by: Mahendra Leonardo M.D. 11/13/2023 12:14 PM
[2023-11-13 12:29] LABS: BUN Creatinine Ratio 15.1 (10-20); Calcium 8.2 mg/dl (8.6-10.3); Creatinine Clr Calc Pharmacy 37.4 ml/min; Est GFR (African American) 33.5 ml/min; Est GFR (Non-African American) 28.9 ml/min; Potassium 4.3 mmol/L (3.5-5.1)
[2023-11-13 13:31] LABS: Basophils # (auto) 0.03 K/uL (0.00-0.20); Basophils % (auto) 0.5 %; Eosinophils # (auto) 0.31 K/uL (0.00-0.50); Eosinophils % (auto) 4.7 %; Hematocrit (blood only) 27.2 % (42.0-52.0); Hemoglobin 8.4 g/dl (14.0-18.0); Immature Granulocytes # (auto) 0.03 K/uL (0.01-0.20); Immature Granulocytes % (auto) 0.5 %; Lymphocytes # (auto) 1.52 K/uL (1.20-3.40); Lymphocytes % (auto) 22.9 %; Mean Corpuscular Hgb Conc 30.9 g/dL (32.0-36.0); Mean Corpuscular Volume 90.7 fL (80.0-100.0); Mean Platelet Volume 8.6 fL (9.4-12.4); Monocytes # (auto) 0.56 K/uL (0.11-0.59); Monocytes % (auto) 8.4 %; Neutrophils # (auto) 4.19 K/uL (1.40-6.50); Platelet Count 227 K/uL (130-400); RDW Coefficient of Variation 18.6 % (11.5-14.5); RDW Standard Deviation 61.1 fL (36.4-46.3); White Blood Count 6.64 K/ul (4.8-10.8)
--- NOTE | 2023-11-13 17:50 | Hospitalist Progress Note ---
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 Left lower extremity hematoma, status post steroid injection on the hip Acute on chronic anemia in setting of blood loss in the setting of above Chronic Coumadin use for DVT, aspirin and Brilinta use for coronary disease, recent cardiac stent restenosis Admit to telemetry Hemoglobin on 10/21 was 7.5, today 8.0 Patient was typed and crossed Blood consent obtained by Dr. Rosalio Rain if hgb < 7 Warfarin, INR 2.6 will not give Vit k at this time but will be considered if hgb is downtrending unable to interrupt ASA, brilinta as pt recently had coronary intervention 10/2023 at [facility] Consult orthopedics Dr. Farias for further recommendations regarding possible hematoma 11/12 Hemoglobin trended down from 8.7, this morning 7.2 Patient has extensive left lower extremity hematoma INR is 2.6 CT abdomen and pelvis: No signs of retroperitoneal hemorrhage CT lower extremity: Intramuscular hematoma in the sartorius region, with surrounding hemorrhage In light of active bleeding, will order vitamin K 5 mg IV to reverse the INR Hold aspirin and Brilinta 1 unit of packed RBCs ordered, repeat hemoglobin 8.7 Repeat hemoglobin at 6 PM Hematology service consulted 2/ Hg stable at 8.4 CT lower ext: no expansion of hematoma continue IV heparin for now monitor H&H q6h discussed with Dr. Caban, continue IV heparin for now, will wait for 48 hours prior to restarting ASA, Brillinta, Coumadin CAD with history of multiple coronary inventions, most recently October 2023 patient underwent LAD angioplasty secondary to in-stent restenosis of LAD HTN HLD He follows [facility] cardiology Will obtain records, recent cath report On ASA, Brilinta, statin, lisinopril and metoprolol -- Hold aspirin, Brilinta for the meantime in light of significant hematoma Will resume as soon as hemostasis has been achieved PAF Regular rate and rhythm On warfarin, continue metoprolol --Reversal of Coumadin as per #1 History of DVT/PE --Reversal of Coumadin per #1 INR daily CKD stage III Presence of left AV fistula Previously required hemodialysis Currently off HD, following nephrology Baseline creatinine 2.0 Avoid nephrotoxic agent --Stable overall Morbid obesity, BMI 40.1 Encourage diet lifestyle medications DVT prophylaxis: on heparin drip FULL CODE PCP: Memo Mancilla Dispo: Pending, will order PT and OT evaluation plan of care discussed with patient and his in detail and at length all questions answered they are understanding, agreeable, comfortable with the plan of care Admission and Anticipated Discharge Date Admission Date: November 11, 2023 Subjective Follow-up for left thigh hematoma, etc. Seen sitting up at the edge of the bed, comfortable, in good spirits States he feels fine overall Discomfort over left lower extremity is same as yesterday Denies dizziness, chest pain, shortness of breath No other new symptoms Review of Systems Review of Systems: all noted and negative except for above Physical Exam Physical Exam: General- oriented x 3, not in distress, speaks in sentences with no effort or accessory muscle use Eyes- anicteric Neck- no JVD Lungs- clear breath sounds bilaterally, no crackles or wheezing Heart- normal rate, regular rhythm; no murmurs Abdomen- normal bowel sounds, nondistended, soft, nontender Extremities- no pretibial edema, no calf tenderness Left lower extremity: Hematoma over anterior and posterior thigh similar to yesterday Left lower leg: Extremity in the medial aspect and posterior aspect same as yesterday Mild to moderate edema, no tenderness, warmth Neuro- alert, oriented x 3; no gross focal neurologic deficits Skin- warm & dry Results & Data Results & Data Vital Signs (Past 12 Hours) Vital Signs Temp Pulse Pulse Resp BP Pulse Ox O2 Del Method 11/13/23 15:07 36.3 C L 64 20 147/80 H 92 Room Air 11/13/23 14:01 67 11/13/23 12:02 65 11/13/23 11:31 36.6 C 70 20 133/78 96 Room Air 11/13/23 07:50 36.7 C 78 20 124/76 97 Room Air 11/13/23 05:59 66 all noted and reviewed including below (2) Hematoma of left lower extremity Encounter type: initial encounter Qualified Code(s): S80.12XA - Contusion of left lower leg, initial encounter (5) Atrial fibrillation Atrial fibrillation type: unspecified Qualified Code(s): I48.91 - Unspecified atrial fibrillation
[2023-11-13 18:34] LABS: Basophils # (auto) 0.02 K/uL (0.00-0.20); Basophils % (auto) 0.3 %; Eosinophils # (auto) 0.26 K/uL (0.00-0.50); Hematocrit (blood only) 25.8 % (42.0-52.0); Hemoglobin 7.9 g/dl (14.0-18.0); Immature Granulocytes # (auto) 0.03 K/uL (0.01-0.20); Immature Granulocytes % (auto) 0.5 %; Lymphocytes # (auto) 1.38 K/uL (1.20-3.40); Lymphocytes % (auto) 21.5 %; Mean Corpuscular Hemoglobin 27.8 pg (25.0-34.0); Mean Corpuscular Hgb Conc 30.6 g/dL (32.0-36.0); Mean Corpuscular Volume 90.8 fL (80.0-100.0); Mean Platelet Volume 8.4 fL (9.4-12.4); Monocytes # (auto) 0.65 K/uL (0.11-0.59); Monocytes % (auto) 10.1 %; Neutrophils # (auto) 4.09 K/uL (1.40-6.50); Neutrophils % (auto) 63.6 %; Platelet Count 191 K/uL (130-400); RDW Coefficient of Variation 18.7 % (11.5-14.5); RDW Standard Deviation 62.5 fL (36.4-46.3); Red Blood Count 2.84 M/uL (4.70-6.10); White Blood Count 6.43 K/ul (4.8-10.8)
[2023-11-13 18:54] LABS: Ovalocytes 1+; Polychromasia 1+; Tear Drop Cells 1+
--- NOTE | 2023-11-13 20:18 | Hematology/Oncology Prog Note ---
Date of Service November 13, 2023 Assessment & Plan (1) Hematoma of left lower extremity: Plan: Continue low-dose heparin protocol to prevent restenosis of cardiac stent. He seems to have achieved hemostatic stability. Will consider reinitiation of anticoagulation within the next 24 to 48 hours if his H&H continues to be stable and there is no further evidence of increased clotting. This was discussed with his primary media relations director and our colleagues from hospital internal medicine Plan At hematology will continue to follow the patient and make appropriate recommendations Admission and Anticipated Discharge Date Admission Date: November 11, 2023 Subjective Currently doing well, stable. H&H has been checked is not dropping. CT scan revealed stable hematoma Physical Exam Constitutional: WD/WN, vitals as above Eyes: PERRL, conjunctivae normal, anicteric sclerae ENMT: external ear and nose normal, oropharynx normal Neck: trachea midline, no thyromegaly Respiratory: normal respiratory effort, lungs clear to auscultation Cardiovascular: RRR, no murmur, no edema Gastrointestinal (Abdomen): normal bowel sounds, soft, nontender, no hepatosplenomegaly Musculoskeletal: no cyanosis or clubbing, extremities motor strength 5/5 Skin: no rashes, warm and dry Results & Data Vital Signs (Past 12 Hours) Vital Signs Temp Pulse Pulse Resp BP Pulse Ox O2 Del Method 11/13/23 19:30 36.7 C 66 20 154/80 H 96 Room Air 11/13/23 15:07 36.3 C L 64 20 147/80 H 92 Room Air 11/13/23 14:01 67 11/13/23 12:02 65 11/13/23 11:31 36.6 C 70 20 133/78 96 Room Air (1) Hematoma of left lower extremity Encounter type: initial encounter Qualified Code(s): S80.12XA - Contusion of left lower leg, initial encounter
[2023-11-14 01:20] LABS: Basophils # (auto) 0.02 K/uL (0.00-0.20); Basophils % (auto) 0.3 %; Eosinophils # (auto) 0.29 K/uL (0.00-0.50); Eosinophils % (auto) 4.3 %; Hematocrit (blood only) 23.2 % (42.0-52.0); Hemoglobin 7.4 g/dl (14.0-18.0); Immature Granulocytes # (auto) 0.04 K/uL (0.01-0.20); Immature Granulocytes % (auto) 0.6 %; Lymphocytes # (auto) 1.59 K/uL (1.20-3.40); Lymphocytes % (auto) 23.4 %; Mean Corpuscular Hgb Conc 31.9 g/dL (32.0-36.0); Mean Corpuscular Volume 87.9 fL (80.0-100.0); Mean Platelet Volume 9.1 fL (9.4-12.4); Monocytes # (auto) 0.72 K/uL (0.11-0.59); Monocytes % (auto) 10.6 %; Neutrophils # (auto) 4.13 K/uL (1.40-6.50); Neutrophils % (auto) 60.8 %; Platelet Count 218 K/uL (130-400); RDW Coefficient of Variation 18.6 % (11.5-14.5); RDW Standard Deviation 59.2 fL (36.4-46.3); Red Blood Count 2.64 M/uL (4.70-6.10); White Blood Count 6.79 K/ul (4.8-10.8)
[2023-11-14] MEDS ORDERED: OLANZapine 10 MG/2.1 ML SDV IM PRN (01:25)
[2023-11-14 02:02] LABS: Hypochromasia Present; Ovalocytes 1+; Polychromasia 1+; Tear Drop Cells 1+
[2023-11-14 03:10] LABS: Appearance Urine Clear (Clear); Bacteria Urine Automated Negative (Negative); Bilirubin Urine Negative (Negative); Blood Urine Negative (Negative); Cast Urine Automated 0 /lpf (0-5); Color Urine Yellow; Epithelial Cell Urine Auto 0-5 /lpf (0-5); Glucose Urine UA Negative (Negative); Ketones Urine Negative (Negative); Leukocyte Esterase Urine Negative (Negative); Nitrite Urine Negative (Negative); Protein Urine 1+ (Negative); RBC Urine Automated 0-4 /hpf (0-4); Urobilinogen Urine Negative (Negative); WBC Urine Automated 0 /hpf (0-5); pH Urine 6.5 (4.5-7.5)
[2023-11-14] MEDS: SODIUM CHLORIDE 0.9% 1,000 ML IV ONE (05:31)
[2023-11-14 05:53] LABS: Basophils # (auto) 0.02 K/uL (0.00-0.20); Basophils % (auto) 0.3 %; Eosinophils # (auto) 0.28 K/uL (0.00-0.50); Hematocrit (blood only) 25.2 % (42.0-52.0); Hemoglobin 7.8 g/dl (14.0-18.0); Immature Granulocytes # (auto) 0.03 K/uL (0.01-0.20); Immature Granulocytes % (auto) 0.4 %; Lymphocytes # (auto) 1.79 K/uL (1.20-3.40); Lymphocytes % (auto) 25.8 %; Mean Corpuscular Hemoglobin 27.9 pg (25.0-34.0); Mean Platelet Volume 8.8 fL (9.4-12.4); Monocytes # (auto) 0.74 K/uL (0.11-0.59); Monocytes % (auto) 10.6 %; Neutrophils # (auto) 4.09 K/uL (1.40-6.50); Neutrophils % (auto) 58.9 %; Platelet Count 213 K/uL (130-400); RDW Coefficient of Variation 18.3 % (11.5-14.5); RDW Standard Deviation 60.7 fL (36.4-46.3); White Blood Count 6.95 K/ul (4.8-10.8)
[2023-11-14 06:05] LABS: BUN Creatinine Ratio 17.1 (10-20); Calcium 8.4 mg/dl (8.6-10.3); Creatinine Clr Calc Pharmacy 37.5 ml/min; Est GFR (Non-African American) 29.4 ml/min; Potassium 4.6 mmol/L (3.5-5.1)
[2023-11-14 06:21] LABS: ANTI-Xa, UFH(UnfractionatedHep 0.22 IU/ml (0.3-0.7); INR 1.1 (0.9-1.1); Prothrombin Time 11.9 Seconds (9.0-12.0)
[2023-11-14 06:25] LABS: Basophilic Stippling 1+; Ovalocytes 1+; Polychromasia 1+; Tear Drop Cells 1+
--- NOTE | 2023-11-14 07:00 | XRay Report ---
SINGLE VIEW CHEST CLINICAL HISTORY: Hyponatremia FINDINGS: An AP, portable, upright chest radiograph is obtained. No prior studies are available for c omparison at the time of dictation. The examination is degraded by portable technique and apical lord otic positioning. The heart appears enlarged. The pulmonary vasculature is noncongested. There is mil d bibasilar scarring/atelectasis. No airspace consolidation or large pleural effusion is identified. No pneumothorax is seen. The skeletal structures are osteopenic. The bony thorax is grossly intact. P ostoperative change is seen at the thoracolumbar junction. IMPRESSION: No acute cardiopulmonary abnormality. ACT 112: Negative or not required by law. Electronically signed by: Mahendra Leonardo M.D. 11/14/2023 6:59 AM
[2023-11-14 12:59] LABS: Basophils # (auto) 0.04 K/uL (0.00-0.20); Basophils % (auto) 0.6 %; Eosinophils % (auto) 4.2 %; Hematocrit (blood only) 25.7 % (42.0-52.0); Hemoglobin 8.1 g/dl (14.0-18.0); Immature Granulocytes # (auto) 0.05 K/uL (0.01-0.20); Immature Granulocytes % (auto) 0.7 %; Lymphocytes # (auto) 1.64 K/uL (1.20-3.40); Lymphocytes % (auto) 23.1 %; Mean Corpuscular Hemoglobin 28.3 pg (25.0-34.0); Mean Corpuscular Hgb Conc 31.5 g/dL (32.0-36.0); Mean Corpuscular Volume 89.9 fL (80.0-100.0); Mean Platelet Volume 9.5 fL (9.4-12.4); Monocytes # (auto) 0.69 K/uL (0.11-0.59); Monocytes % (auto) 9.7 %; Neutrophils # (auto) 4.39 K/uL (1.40-6.50); Neutrophils % (auto) 61.7 %; Platelet Count 253 K/uL (130-400); RDW Coefficient of Variation 18.7 % (11.5-14.5); RDW Standard Deviation 60.9 fL (36.4-46.3); Red Blood Count 2.86 M/uL (4.70-6.10); White Blood Count 7.11 K/ul (4.8-10.8)
[2023-11-14 13:26] LABS: ANTI-Xa, UFH(UnfractionatedHep 0.26 IU/ml (0.3-0.7)
[2023-11-14 13:48] LABS: Ovalocytes 1+; Polychromasia 1+; Tear Drop Cells 1+
--- NOTE | 2023-11-14 17:06 | Hospitalist Progress Note ---
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 Left lower extremity hematoma, status post steroid injection on the hip Acute on chronic anemia in setting of blood loss in the setting of above Chronic Coumadin use for DVT, aspirin and Brilinta use for coronary disease, recent cardiac stent restenosis Admit to telemetry Hemoglobin on 10/21 was 7.5, today 8.0 Patient was typed and crossed Blood consent obtained by Dr. Rosalio Rain if hgb < 7 Warfarin, INR 2.6 will not give Vit k at this time but will be considered if hgb is downtrending unable to interrupt ASA, brilinta as pt recently had coronary intervention 10/2023 at [facility] Consult orthopedics Dr. Farias for further recommendations regarding possible hematoma 11/12 Hemoglobin trended down from 8.7, this morning 7.2 Patient has extensive left lower extremity hematoma INR is 2.6 CT abdomen and pelvis: No signs of retroperitoneal hemorrhage CT lower extremity: Intramuscular hematoma in the sartorius region, with surrounding hemorrhage In light of active bleeding, will order vitamin K 5 mg IV to reverse the INR Hold aspirin and Brilinta 1 unit of packed RBCs ordered, repeat hemoglobin 8.7 Repeat hemoglobin at 6 PM Hematology service consulted 2/ Hg stable at 8.4 CT lower ext: no expansion of hematoma continue IV heparin for now monitor H&H q6h discussed with Dr. Caban, continue IV heparin for now, will wait for 48 hours prior to restarting ASA, Brillinta, Coumadin 11/14 Hemoglobin remained stable while on low-dose heparin drip Continue IV heparin Repeat H&H tomorrow Hopefully can resume Brilinta in 1 to 2-days CAD with history of multiple coronary inventions, most recently October 2023 patient underwent LAD angioplasty secondary to in-stent restenosis of LAD HTN HLD He follows [facility] cardiology Will obtain records, recent cath report On ASA, Brilinta, statin, lisinopril and metoprolol -- Hold aspirin, Brilinta for the meantime in light of significant hematoma Will resume as soon as hemostasis has been achieved -- No cardiac symptoms PAF Regular rate and rhythm On warfarin, continue metoprolol --Reversal of Coumadin as per #1 History of DVT/PE --Reversal of Coumadin per #1 INR daily CKD stage III Presence of left AV fistula Previously required hemodialysis Currently off HD, following nephrology Baseline creatinine 2.0 Avoid nephrotoxic agent --Stable overall Morbid obesity, BMI 40.1 Encourage diet lifestyle medications DVT prophylaxis: -- on heparin drip FULL CODE PCP: Memo Mancilla Dispo: Pending, PT and OT evaluation plan of care discussed with patient and his in detail and at length all questions answered they are understanding, agreeable, comfortable with the plan of care Admission and Anticipated Discharge Date Admission Date: November 11, 2023 Subjective Follow-up for left thigh hematoma, etc. Seen resting in bed side chair, comfortable, not in distress Pain over left thigh and left lower leg seems to be improving overall No problems with ambulation no chest pain, dyspnea, palpitations, dizziness No other new symptoms Review of Systems Review of Systems: all noted and negative except for above Physical Exam Physical Exam: General- oriented x 3, not in distress, speaks in sentences with no effort or accessory muscle use Eyes- anicteric Neck- no JVD Lungs- clear breath sounds bilaterally, no crackles or wheezing Heart- normal rate, regular rhythm; no murmurs Abdomen- normal bowel sounds, nondistended, soft, no tenderness Extremities- no pretibial edema, no calf tenderness Left lower extremity: Edema improving, areas of hematoma about the same Neuro- alert, oriented x 3; no gross focal neurologic deficits Skin- warm & dry Results & Data Results & Data Vital Signs (Past 12 Hours) Vital Signs Temp Pulse Pulse Resp BP Pulse Ox O2 Del Method 11/14/23 15:24 36.7 C 70 18 104/64 96 Room Air 11/14/23 15:04 68 11/14/23 11:40 36.6 C 64 18 107/68 97 Room Air 11/14/23 07:47 37.1 C 49 L 18 116/70 96 Room Air 11/14/23 07:22 83 all noted and reviewed including below (2) Hematoma of left lower extremity Encounter type: initial encounter Qualified Code(s): S80.12XA - Contusion of left lower leg, initial encounter (5) Atrial fibrillation Atrial fibrillation type: unspecified Qualified Code(s): I48.91 - Unspecified atrial fibrillation
--- NOTE | 2023-11-14 19:34 | Communication Note ---
Date of Service: November 14, 2023 7:30 PM Patient with hematochezia symptoms without unusual abdominal pain, not diarrhea as per RN. Possibly just from straining from constipation as per patient. Hemoglobin 8.1 to 8.3 to 7.7 AP Transient LGIB Progressive H&H drop Current IV anticoagulation for cardiac indications Hold IV heparin for now
[2023-11-14 20:00] LABS: Hematocrit (blood only) 26.6 % (42.0-52.0); Hemoglobin 8.3 g/dl (14.0-18.0)
[2023-11-14 20:22] LABS: ANTI-Xa, UFH(UnfractionatedHep 0.32 IU/ml (0.3-0.7)
[2023-11-15 01:11] LABS: Hemoglobin 7.7 g/dl (14.0-18.0)
[2023-11-15 01:40] LABS: ANTI-Xa, UFH(UnfractionatedHep < 0.10 IU/ml (0.3-0.7)
[2023-11-15] MEDS ORDERED: SODIUM CHLORIDE 0.9% 250 ML IV PRN (01:47)
[2023-11-15] MEDS: DOCUSATE SODIUM 100 MG CAP PO SCH (09:09)
[2023-11-15 09:49] LABS: Basophils # (auto) 0.03 K/uL (0.00-0.20); Basophils % (auto) 0.5 %; Eosinophils # (auto) 0.24 K/uL (0.00-0.50); Eosinophils % (auto) 4.1 %; Hematocrit (blood only) 29.9 % (42.0-52.0); Immature Granulocytes # (auto) 0.05 K/uL (0.01-0.20); Immature Granulocytes % (auto) 0.9 %; Lymphocytes # (auto) 1.34 K/uL (1.20-3.40); Mean Corpuscular Hemoglobin 27.6 pg (25.0-34.0); Mean Corpuscular Hgb Conc 30.1 g/dL (32.0-36.0); Mean Corpuscular Volume 91.7 fL (80.0-100.0); Mean Platelet Volume 8.6 fL (9.4-12.4); Monocytes # (auto) 0.43 K/uL (0.11-0.59); Monocytes % (auto) 7.4 %; Neutrophils # (auto) 3.73 K/uL (1.40-6.50); Neutrophils % (auto) 64.1 %; Platelet Count 194 K/uL (130-400); RDW Coefficient of Variation 18.1 % (11.5-14.5); RDW Standard Deviation 60.4 fL (36.4-46.3); Red Blood Count 3.26 M/uL (4.70-6.10); White Blood Count 5.82 K/ul (4.8-10.8)
[2023-11-15 10:07] LABS: BUN Creatinine Ratio 17.3 (10-20); Calcium 8.6 mg/dl (8.6-10.3); Creatinine Clr Calc Pharmacy 36.3 ml/min; Est GFR (African American) 33.3 ml/min; Est GFR (Non-African American) 28.7 ml/min; Potassium 4.3 mmol/L (3.5-5.1)
[2023-11-15 10:15] LABS: INR 1.1 (0.9-1.1); Prothrombin Time 11.9 Seconds (9.0-12.0)
--- NOTE | 2023-11-15 12:22 | Hospitalist Progress Note ---
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 Left lower extremity hematoma, status post steroid injection on the hip Acute on chronic anemia in setting of blood loss in the setting of above Chronic Coumadin use for DVT, aspirin and Brilinta use for coronary disease, recent cardiac stent restenosis Admit to telemetry Hemoglobin on 10/21 was 7.5, today 8.0 Patient was typed and crossed Blood consent obtained by Dr. Rosalio Rain if hgb < 7 Warfarin, INR 2.6 will not give Vit k at this time but will be considered if hgb is downtrending unable to interrupt ASA, brilinta as pt recently had coronary intervention 10/[address] [facility] Consult orthopedics Dr. Farias for further recommendations regarding possible hematoma 11/12 Hemoglobin trended down from 8.7, this morning 7.2 Patient has extensive left lower extremity hematoma INR is 2.6 CT abdomen and pelvis: No signs of retroperitoneal hemorrhage CT lower extremity: Intramuscular hematoma in the sartorius region, with surrounding hemorrhage In light of active bleeding, will order vitamin K 5 mg IV to reverse the INR Hold aspirin and Brilinta 1 unit of packed RBCs ordered, repeat hemoglobin 8.7 Repeat hemoglobin at 6 PM Hematology service consulted 2/ Hg stable at 8.4 CT lower ext: no expansion of hematoma continue IV heparin for now monitor H&H q6h discussed with Dr. Caban, continue IV heparin for now, will wait for 48 hours prior to restarting ASA, Brillinta, Coumadin 11/14 Hemoglobin remained stable while on low-dose heparin drip Continue IV heparin Repeat H&H tomorrow Hopefully can resume Brilinta in 1 to 2-days 11/15 Hemoglobin actually increased to 9.0 Hematoma also clinically improving Discussed with Dr. Arsh GILMORE IV heparin Resume Brilinta, aspirin, Coumadin today Monitor CBC CAD with history of multiple coronary inventions, most recently October 2023 patient underwent LAD angioplasty secondary to in-stent restenosis of LAD HTN HLD He follows [facility] cardiology Will obtain records, recent cath report On ASA, Brilinta, statin, lisinopril and metoprolol -- Hemostasis seems to have been achieved, hematoma seems to be resolving Hemoglobin stable at around 8-9 -- Resume Brilinta, aspirin, Coumadin today PAF Regular rate and rhythm On warfarin, continue metoprolol --Reversal of Coumadin as per #1 -- Resume Coumadin today History of DVT/PE --Reversal of Coumadin per #1 -- Resume Coumadin today INR daily CKD stage III Presence of left AV fistula Previously required hemodialysis Currently off HD, following nephrology Baseline creatinine 2.0 Avoid nephrotoxic agent --Stable overall Morbid obesity, BMI 40.1 Encourage diet lifestyle medications DVT prophylaxis: -- on heparin drip FULL CODE PCP: Memo Mancilla Dispo: Pending, PT and OT evaluation plan of care discussed with patient in detail and at length all questions answered He is understanding, agreeable, comfortable with the plan of care Admission and Anticipated Discharge Date Admission Date: November 11, 2023 Subjective Follow-up for left thigh hematoma, etc. Had a small amount of hematochezia yesterday, 1 tablespoon as per patient Had some blood-tinged nasal drainage today All resolved Overall patient feels he is fine Denies shortness of breath, dizziness, chest pain, abdominal pain No leg pain No fevers or chills No other new symptom Review of Systems Review of Systems: all noted and negative except for above Physical Exam Physical Exam: General- oriented x 3, not in distress, speaks in sentences with no effort or accessory muscle use Eyes- anicteric Neck- no JVD Lungs- clear breath sounds bilaterally, no rales/wheezes Heart- normal rate, regular rhythm; no murmurs Abdomen- normal bowel sounds, nondistended, soft, nontender Extremities- no pretibial edema, no calf tenderness 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 admission Edema also further improving Neuro- alert, oriented x 3; no gross focal neurologic deficits Skin- warm & dry Results & Data Results & Data Vital Signs (Past 12 Hours) Vital Signs Temp Pulse Pulse Resp BP BP Pulse Ox 11/15/23 11:14 36.8 C 76 17 124/76 96 11/15/23 07:16 70 11/15/23 07:05 36.7 C 69 18 118/73 97 11/15/23 06:20 36.4 C L 67 20 134/80 98 11/15/23 05:20 37.0 C 68 20 144/67 H 97 11/15/23 04:20 36.5 C 69 18 134/75 96 11/15/23 03:50 36.9 C 69 16 129/70 94 11/15/23 03:35 36.8 C 61 16 116/70 94 11/15/23 03:15 37.0 C 77 18 126/68 94 O2 Del Method 11/15/23 11:14 Room Air 11/15/23 07:16 11/15/23 07:05 11/15/23 06:20 11/15/23 05:20 11/15/23 04:20 11/15/23 03:50 11/15/23 03:35 11/15/23 03:15 all noted and reviewed including below (2) Hematoma of left lower extremity Encounter type: initial encounter Qualified Code(s): S80.12XA - Contusion of left lower leg, initial encounter (5) Atrial fibrillation Atrial fibrillation type: unspecified Qualified Code(s): I48.91 - Unspecified atrial fibrillation
[2023-11-15] MEDS: ASPIRIN 81 MG ECTAB PO SCH (12:43)
[2023-11-15] MEDS: TICAGRELOR 90 MG TAB PO SCH (12:44)
--- NOTE | 2023-11-15 15:34 | Hematology/Oncology Prog Note ---
Date of Service November 15, 2023 Assessment & Plan (1) Hematoma of left lower extremity: Plan: H&H seems to have stabilized. Will recommend continued close monitoring of hemoglobin and hematocrit. 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 Can reinitiate Coumadin as well. Will recommend continued monitoring of the H&H. Plan Thank you for this interesting hematological consult hematology will continue to follow the patient make appropriate recommendations. Admission and Anticipated Discharge Date Admission Date: November 11, 2023 Subjective At a small amount of hematochezia yesterday, otherwise no other symptoms. This morning was on heparin, H&H has stabilized. Vitals are stable. Hemoglobin is holding steady. Review of Systems Review of Systems: All systems reviewed & are unremarkable except as noted in HPI & below Constitutional: as per Subjective / HPI Eyes: as per Subjective / HPI Ear, Nose, Mouth, Throat: as per Subjective / HPI Respiratory: as per Subjective / HPI Cardiovascular: as per Subjective / HPI Gastrointestinal: as per Subjective / HPI Genitourinary: + as per Subjective / HPI Integumentary: as per Subjective / HPI Neurologic: as per Subjective / HPI Psychiatric: as per Subjective / HPI Endocrine: as per Subjective / HPI Physical Exam Constitutional: WD/WN, vitals as above Eyes: PERRL, conjunctivae normal, anicteric sclerae ENMT: external ear and nose normal, oropharynx normal Neck: trachea midline, no thyromegaly Respiratory: normal respiratory effort, lungs clear to auscultation Cardiovascular: RRR, no murmur, no edema Gastrointestinal (Abdomen): normal bowel sounds, soft, nontender, no hepatosplenomegaly Musculoskeletal: no cyanosis or clubbing, extremities motor strength 5/5 Skin: no rashes, warm and dry Neurologic: patellar DTR's 2+ bilat, sensation intact Psychiatric: A+Ox3, euthymic affect Results & Data Vital Signs (Past 12 Hours) Vital Signs Temp Pulse Pulse Resp BP BP Pulse Ox 11/15/23 15:18 73 11/15/23 11:14 36.8 C 76 17 124/76 96 11/15/23 07:16 70 11/15/23 07:05 36.7 C 69 18 118/73 97 11/15/23 06:20 36.4 C L 67 20 134/80 98 11/15/23 05:20 37.0 C 68 20 144/67 H 97 11/15/23 04:20 36.5 C 69 18 134/75 96 11/15/23 03:50 36.9 C 69 16 129/70 94 11/15/23 03:35 36.8 C 61 16 116/70 94 O2 Del Method 11/15/23 15:18 11/15/23 11:14 Room Air 11/15/23 07:16 11/15/23 07:05 11/15/23 06:20 11/15/23 05:20 11/15/23 04:20 11/15/23 03:50 11/15/23 03:35 (1) Hematoma of left lower extremity Encounter type: initial encounter Qualified Code(s): S80.12XA - Contusion of left lower leg, initial encounter
[2023-11-15] MEDS: WARFARIN SOD 3 MG TAB PO SCH (18:09)
--- NOTE | 2023-11-15 21:04 | Communication Note ---
Date of Service: November 15, 2023 Patient complaining of worsening left leg swelling to RN. No fever, no chills. LLE red and bluish as per RN. CT LLE: Moderate subcutaneous edema with prominent greater saphenous vein concerning for possible chronic venous insufficiency. Recommend venous duplex ultrasound and lower extremity venous mapping for further evaluation. No evidence of abscess or abnormal fluid collection. AP LLE cellulitis Recent hematoma Doxycycline course
[2023-11-15 21:57] LABS: Hematocrit (blood only) 28.2 % (42.0-52.0); Hemoglobin 8.8 g/dl (14.0-18.0)
--- NOTE | 2023-11-16 02:29 | CT Scan Report ---
Exam(s): CT EXTREMITY LEFT LOWER Without Contrast EXAM: CT Left Lower Extremity Without Intravenous Contrast CLINICAL HISTORY: Reason for exam: worsening swelling. TECHNIQUE: Axial computed tomography images of the left lower extremity without intravenous contrast. CTDI is 24.91 mGy and DLP is 1100.87 mGy-cm. Automated exposure control was utilized for the study. A dose lowering technique was utilized adhering to the principles of ALARA. COMPARISON: No relevant prior studies available. FINDINGS: Bones/joints: Moderate to advanced tricompartmental degenerative arthropathy of the knee. No acute fracture. No dislocation. Soft tissues: There is moderate subcutaneous edema. The greater saphenous vein is prominent. There is minimal to mild calcified atherosclerotic plaque IMPRESSION: Moderate subcutaneous edema with prominent greater saphenous vein concerning for possible chronic venous insufficiency. Recommend venous duplex ultrasound and lower extremity venous mapping for further evaluation. No evidence of abscess or abnormal fluid collection. Moderate to advanced tricompartmental degenerative arthropathy of the knee. Electronically signed by: Lola Ladd MD 11/16/23 02:28 AM
[2023-11-16] MEDS: DOXYCYCLINE HYCLATE 100 MG in DEXTROSE 5% MINI-B 100 ML IV STA (05:45)
[2023-11-16 07:00] LABS: Basophils # (auto) 0.04 K/uL (0.00-0.20); Basophils % (auto) 0.6 %; Eosinophils % (auto) 4.5 %; Hematocrit (blood only) 29.1 % (42.0-52.0); Hemoglobin 8.9 g/dl (14.0-18.0); Immature Granulocytes # (auto) 0.07 K/uL (0.01-0.20); Immature Granulocytes % (auto) 1.1 %; Lymphocytes # (auto) 1.64 K/uL (1.20-3.40); Lymphocytes % (auto) 24.7 %; Mean Corpuscular Hgb Conc 30.6 g/dL (32.0-36.0); Mean Corpuscular Volume 91.5 fL (80.0-100.0); Mean Platelet Volume 8.8 fL (9.4-12.4); Monocytes # (auto) 0.69 K/uL (0.11-0.59); Monocytes % (auto) 10.4 %; Neutrophils % (auto) 58.7 %; Nucleated RBC # (auto) 0.02 K/uL (0.00-0.12); Nucleated RBC % (auto) 0.3 %; Platelet Count 214 K/uL (130-400); Red Blood Count 3.18 M/uL (4.70-6.10); White Blood Count 6.64 K/ul (4.8-10.8)
[2023-11-16 07:18] LABS: BUN Creatinine Ratio 16.9 (10-20); Calcium 8.8 mg/dl (8.6-10.3); Creatinine Clr Calc Pharmacy 32.9 ml/min; Est GFR (African American) 29.6 ml/min; Est GFR (Non-African American) 25.6 ml/min; Potassium 4.4 mmol/L (3.5-5.1)
[2023-11-16 08:09] LABS: INR 1.1 (0.9-1.1); Prothrombin Time 11.9 Seconds (9.0-12.0)
[2023-11-16] MEDS ORDERED: DOXYCYCLINE HYCLATE 100 MG CAP PO SCH (21:00)
--- NOTE | 2023-11-17 14:28 | Hospitalist Progress Note ---
Date of Service November 17, 2023 delayed entry date of service November 16, 2023 Assessment & Plan (1) Acute blood loss anemia: (2) Hematoma of left lower extremity: (3) CAD (coronary artery disease): (4) MCFP current use of anticoagulant: (5) Atrial fibrillation: (6) HTN (hypertension): (7) HLD (hyperlipidemia): (8) Morbid obesity with BMI of 40.0-44.9, adult: Plan Per admitting service notes with addendum: This is a 61 male who has a significant past medical history of PAF anticoagulated on warfarin, history of DVT/PE, CAD with history of multiple angioplasties most recently October 2023 secondary to stent restenosis on ASA and Brilinta, CKD-3, HTN, HLD presents to ED secondary to left leg pain and bruising for the last few days. Left lower extremity hematoma, status post steroid injection on the hip Acute on chronic anemia in setting of blood loss in the setting of above Chronic Coumadin use for DVT, aspirin and Brilinta use for coronary disease, recent cardiac stent restenosis ons regarding possible hematoma 11/12 Hemoglobin trended down from 8.7, this morning 7.2 Patient has extensive left lower extremity hematoma INR is 2.6 CT abdomen and pelvis: No signs of retroperitoneal hemorrhage CT lower extremity: Intramuscular hematoma in the sartorius region, with surrounding hemorrhage In light of active bleeding, will order vitamin K 5 mg IV to reverse the INR Hold aspirin and Brilinta 1 unit of packed RBCs ordered, repeat hemoglobin 8.7 Hematology service consulted 11/13 Hg stable at 8.4 CT lower ext: no expansion of hematoma continue IV heparin for now monitor H&H q6h discussed with Dr. 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 Bhatti and Dr. Richardson 11/14 Hemoglobin remained stable while on low-dose heparin drip 11/15 Hemoglobin actually increased to 9.0 Hematoma also clinically improving Discussed with Dr. Caban DC IV heparin Resume Brilinta, aspirin, Coumadin today Monitor CBC 11/16 Hemoglobin stable Around 9 Tolerating Brilinta, aspirin, Coumadin Prescribed with doxycycline 100 mg p.o. twice daily for possible component of left lower leg cellulitis Instructed to follow-up with his Coumadin clinic no later than this week for INR check Patient verbalized understanding and agreement CAD with history of multiple coronary inventions, most recently October 2023 patient underwent LAD angioplasty secondary to in-stent restenosis of LAD HTN HLD He follows [facility] cardiology Will obtain records, recent cath report On ASA, Brilinta, statin, lisinopril and metoprolol -- Hemostasis seems to have been achieved, hematoma seems to be resolving Hemoglobin stable at around 8-9 -- Resumed Brilinta, aspirin, Coumadin PAF Regular rate and rhythm On warfarin, continue metoprolol --Reversal of Coumadin as per #1 -- Resumed Coumadin today History of DVT/PE --Reversal of Coumadin per #1 CKD stage III Presence of left AV fistula Previously required hemodialysis Currently off HD, following nephrology Baseline creatinine 2.0 --Stable overall Morbid obesity, BMI 40.1 Encourage diet lifestyle medications DVT prophylaxis: -- on heparin drip FULL CODE PCP: Memo Mancilla Dispo: Pending, PT and OT evaluation plan of care discussed with patient in detail and at length all questions answered He is understanding, agreeable, comfortable with the plan of care Admission and Anticipated Discharge Date Admission Date: November 11, 2023 Subjective Follow-up for hematoma, etc. Seen resting in bed, comfortable, not in distress Good spirits Developed redness and pain over the left lower overnight, much better this morning no chest pain, dyspnea, palpitations, dizziness No bleeding No other new symptoms States he is ready for discharge today Review of Systems Review of Systems: all noted and negative except for above Physical Exam Physical Exam: General- oriented x 3, not in distress, speaks in sentences with no effort or accessory muscle use Eyes- anicteric Neck- no JVD Lungs- clear breath sounds bilaterally, No crackles, no rhonchi Heart- normal rate, regular rhythm; no murmurs Abdomen- normal bowel sounds, nondistended, soft, nontender Extremities- no pretibial edema, no calf tenderness Mild left lower extremity edema Neuro- alert, oriented x 3; no gross focal neurologic deficits Skin- warm & dry (2) Hematoma of left lower extremity Encounter type: initial encounter Qualified Code(s): S80.12XA - Contusion of left lower leg, initial encounter (5) Atrial fibrillation Atrial fibrillation type: unspecified Qualified Code(s): I48.91 - Unspecified atrial fibrillation
--- NOTE | 2023-11-17 14:52 | Discharge Summary ---
Discharge Summary Date of Service November 17, 2023 Notes For Next Care Provider Medication Changes From Visit Doxycycline 100 mg p.o. twice daily x 7 days Admission HPI Per Admitting Provider This is a 61 male who has a significant past medical history of PAF anticoagulated on warfarin, history of DVT/PE, CAD with history of multiple angioplasties most recently October 2023 secondary to stent restenosis on ASA and Brilinta, CKD-3, HTN, HLD presents to ED secondary to left leg pain and bruising for the last few days. He had a hip injection on Thursday on 11/06 at [facility]. He states he was told he was getting an ultrasound to see where they wanted to inject. He received an injection of lidocaine and dexamethasone. He was not instructed to hold any of his anticoagulants or antiplatelets prior to injection. He is currently on warfarin, asa and brilinta. He complains of Pain to his L leg and, "feeling like it is going to burst." He does feel like it gives out on him from time to time. Generally he feels weak but he denies f/c/s, chest pain, sob, n/v/d, abd pain. He further denies pre syncope, lightheaded/dizziness. is at bedside who helps elicit history. She also p ul up patients online medical record via [facility]. His last lab work on 10/21 revealed a hgb of 11.5 and cr 2.18. Last heart cath in October in 2023 in which he required stent placement. Per report patient had notable and heavily calcified in-stent restenosis of LAD and therefore underwent angioplasty. Also noted was a 99% severe OM disease and patent RCA stents. Ejection fraction was normal. He also had a heart cath in February of 2023. He states he had appox 10 stents total throughout his life time. He is moving bowels and passing urine w/o difficulty. When he moves his bowels he states he sees, "red in the toilet every once in a while." He has hx of colonoscopy 1 year ago and had some polyps removed. He has LUE AVF due to previously requiring HD, but currently is off of this. 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 His [facility] Train Reservation Clerk is Dr Brizuela. He does not see any providers locally. In ED patient remained hemodynamically stable. His hemoglobin and hematocrit was 8.0 and 26.4 respectively. His INR was therapeutic at 2.6. His kidney function is at baseline with a BUN of 36 and creatinine 2.09. Lower extremity ultrasound was negative for DVT and no evidence of hematoma. Admission Exam Per Admitting Provider GENERAL: NAD, non-toxic. EYE EXAM: Normal conjunctiva. PERRL, no anisocoria and EOM's grossly intact w/o pain. OROPHARYNX: Moist mucus membranes, grossly normal dentition. NECK: Trachea midline, no stridor. Supple, no nuchal rigidity, no adenopathy, non-tender. No signs of meningismus. FROM of the neck with good chin to chest and neck extension. LUNGS: Clear to auscultation. Normal chest wall mechanics. HEART: NSR, no MRG. ABDOMEN: Abdomen soft, non-tender, no masses, no rebound or guarding. BACK: No CVA TTP. SKIN: No rashes and no bruising. UPPER EXTREMITIES: Upper extremities are grossly normal. LOWER EXTREMITIES: Grossly normal, left greater than right lower extremity swelling with associated ecchymosis located to the medial and posterior aspect of the left lower extremity, good DP pulse no obvious erythema. NEURO EXAM: A&O x3, cranial nerves II-XII grossly intact, normal speech, moves all 4 extremities. Principal Dx & Hospital Course #1 = Principal Diagnosis (1) Acute blood loss anemia: (2) Hematoma of left lower extremity: (3) CAD (coronary artery disease): (4) halfway current use of anticoagulant: (5) Atrial fibrillation: (6) HTN (hypertension): (7) HLD (hyperlipidemia): (8) Morbid obesity with BMI of 40.0-44.9, adult: Plan Per admitting service notes with addendum: This is a 61 male who has a significant past medical history of PAF anticoagulated on warfarin, history of DVT/PE, CAD with history of multiple angioplasties most recently October 2023 secondary to stent restenosis on ASA and Brilinta, CKD-3, HTN, HLD presents to ED secondary to left leg pain and bruising for the last few days. Left lower extremity hematoma, status post steroid injection on the hip Acute on chronic anemia in setting of blood loss in the setting of above Chronic Coumadin use for DVT, aspirin and Brilinta use for coronary disease, recent cardiac stent restenosis ons regarding possible hematoma 11/12 Hemoglobin trended down from 8.7, this morning 7.2 Patient has extensive left lower extremity hematoma INR is 2.6 CT abdomen and pelvis: No signs of retroperitoneal hemorrhage CT lower extremity: Intramuscular hematoma in the sartorius region, with surrounding hemorrhage In light of active bleeding, will order vitamin K 5 mg IV to reverse the INR Hold aspirin and Brilinta 1 unit of packed RBCs ordered, repeat hemoglobin 8.7 Hematology service consulted 11/13 Hg stable at 8.4 CT lower ext: no expansion of hematoma continue IV heparin for now monitor H&H q6h discussed with Dr. Caban, continue IV heparin for now, will wait for 48 hours prior to restarting ASA, Brillinta, Coumadin Also discussed with patient's analytical research chemist from [facility] Dr. Bhatti and Dr. Richardson 11/14 Hemoglobin remained stable while on low-dose heparin drip 11/15 Hemoglobin actually increased to 9.0 Hematoma also clinically improving Discussed with Dr. Caban DC IV heparin Resume Brilinta, aspirin, Coumadin today Monitor CBC 11/16 Hemoglobin stable Around 9 Tolerating Brilinta, aspirin, Coumadin Prescribed with doxycycline 100 mg p.o. twice daily for possible component of left lower leg cellulitis Instructed to follow-up with his Coumadin clinic no later than this week for INR check Patient verbalized understanding and agreement Incidental findings CT abdomen pelvis "Low-suspicion for a millimeter solid nodule of the lingula, image 28. No free air. The unenhanced spleen, pancreas and left adrenal gland are unremarkable. A 9 mm right adrenal myelolipoma. Unremarkable gallbladder and liver. Mildly atrophic kidneys with cortical thinning. There are several nonobstructing calculi of the bilateral kidneys measuring up to 4 mm on the left and 5 mm on the right. There is a simple 2 cm cyst of the inferior pole right kidney. There are additional subcentimeter lesions of the kidneys including a 9 mm hyperdense lesion of the left kidney on image 159 suggestive of a proteinaceous or hemorrhagic cyst. No ureteral calculi or hydronephrosis. Mild prostatomegaly. Mildly distended urinary bladder. Atherosclerosis of the aorta without aneurysm. No lymphadenopathy. No bowel obstruction or bowel wall thickening. Small fat-filled umbilical hernia with diastases of 2 cm. Colonic diverticulosis. Noninflamed appendix. No acute retroperitoneal hemorrhage is identified. Moderate degeneration of the SI joints. No acute fracture. There is posterior decompression at L1-S1 with posterior interbody tay and screw fusion hardware extending from T11-S2. There is lucency surrounding the screws at almost every level with posterior displacement of the upper hardware, compatible with loosening." Further evaluation and management as an outpatient CAD with history of multiple coronary inventions, most recently October 2023 patient underwent LAD angioplasty secondary to in-stent restenosis of LAD HTN HLD He follows [facility] cardiology Will obtain records, recent cath report On ASA, Brilinta, statin, lisinopril and metoprolol -- Hemostasis seems to have been achieved, hematoma seems to be resolving Hemoglobin stable at around 8-9 -- Resumed Brilinta, aspirin, Coumadin PAF Regular rate and rhythm On warfarin, continue metoprolol --Reversal of Coumadin as per #1 -- Resumed Coumadin today History of DVT/PE --Reversal of Coumadin per #1 CKD stage III Presence of left AV fistula Previously required hemodialysis Currently off HD, following nephrology Baseline creatinine 2.0 --Stable overall Morbid obesity, BMI 40.1 Encourage diet lifestyle medications DVT prophylaxis: -- on heparin drip FULL CODE PCP: Memo Mancilla Dispo: Pending, PT and OT evaluation plan of care discussed with patient in detail and at length all questions answered He is understanding, agreeable, comfortable with the plan of care Discharge Exam General- oriented x 3, not in distress, speaks in sentences with no effort or accessory muscle use Eyes- anicteric Neck- no JVD Lungs- clear breath sounds bilaterally, No crackles, no rhonchi Heart- normal rate, regular rhythm; no murmurs Abdomen- normal bowel sounds, nondistended, soft, nontender Extremities- no pretibial edema, no calf tenderness Mild left lower extremity edema Neuro- alert, oriented x 3; no gross focal neurologic deficits Skin- warm & dry Updated Medication List Medication Instructions Recorded Confirmed Type allopurinol 300 mg tablet 300 mg PO HS 11/11/23 11/11/23 History aspirin 81 mg tablet,delayed 81 mg PO DAILY 11/11/23 11/11/23 History release atorvastatin 80 mg tablet 80 mg PO QAM 11/11/23 11/11/23 History cholecalciferol (vitamin D3) 25 25 mcg PO DAILY 11/11/23 11/11/23 History mcg (1,000 unit) tablet (Vitamin D3) docusate sodium 100 mg capsule 100 mg PO QPM 11/11/23 11/11/23 History (Colace) famotidine 20 mg tablet (Pepcid) 20 mg PO BID 11/11/23 11/11/23 History furosemide 20 mg tablet (Lasix) 20 mg PO DAILY 11/11/23 11/11/23 History gabapentin 600 mg tablet 600 mg PO HS 11/11/23 11/11/23 History (Neurontin) lisinopril 10 mg tablet 10 mg PO BID 11/11/23 11/11/23 History magnesium glycinate 200 mg PO BID 11/11/23 11/11/23 History melatonin 10 mg tablet 10 mg PO HS 11/11/23 11/11/23 History metoprolol succinate 25 mg 25 mg PO BID 11/11/23 11/11/23 History tablet,extended release 24 hr (Toprol XL) ticagrelor 90 mg tablet (Brilinta) 90 mg PO BID 11/11/23 11/11/23 History warfarin 2 mg tablet 2 mg PO Q OTHER DAY 11/11/23 11/11/23 History warfarin 3 mg tablet 3 mg PO Q OTHER DAY 11/11/23 11/11/23 History doxycycline hyclate 100 mg capsule 100 mg PO BID 6 days #12 caps 11/16/23 Rx Hospital Stay Data Consultations 11/11/23 11:21 ED Decision to Admit Stat 11/11/23 13:08 Consult Orthopedic Surgery Routine 11/12/23 08:32 Consult Hematology Routine Diagnostic Imagining Performed Laboratory Results WBC 6.64 K/ul (4.8-10.8) 11/16/23 06:40 RBC 3.18 M/uL (4.70-6.10) L 11/16/23 06:40 Hgb 8.9 g/dl (14.0-18.0) L 11/16/23 06:40 Hct 29.1 % (42.0-52.0) L 11/16/23 06:40 MCV 91.5 fL (80.0-100.0) 11/16/23 06:40 MCH 28.0 pg (25.0-34.0) 11/16/23 06:40 MCHC 30.6 g/dL (32.0-36.0) L 11/16/23 06:40 RDW Std Deviation 59.0 fL (36.4-46.3) H 11/16/23 06:40 RDW Coeff of Gene 18.0 % (11.5-14.5) H 11/16/23 06:40 Plt Count 214 K/uL (130-400) 11/16/23 06:40 MPV 8.8 fL (9.4-12.4) L 11/16/23 06:40 Immature Gran % (Auto) 1.1 % 11/16/23 06:40 Neut % (Auto) 58.7 % 11/16/23 06:40 Lymph % (Auto) 24.7 % 11/16/23 06:40 [place] % (Auto) 10.4 % 11/16/23 06:40 Eos % (Auto) 4.5 % 11/16/23 06:40 Baso % (Auto) 0.6 % 11/16/23 06:40 Neut # (Auto) 3.90 K/uL (1.40-6.50) 11/16/23 06:40 Lymph # (Auto) 1.64 K/uL (1.20-3.40) 11/16/23 06:40 [place] # (Auto) 0.69 K/uL (0.11-0.59) H 11/16/23 06:40 Eos # (Auto) 0.30 K/uL (0.00-0.50) 11/16/23 06:40 Baso # (Auto) 0.04 K/uL (0.00-0.20) 11/16/23 06:40 Immature Gran # (Auto) 0.07 K/uL (0.01-0.20) 11/16/23 06:40 Absolute Nucleated RBC 0.02 K/uL (0.00-0.12) 11/16/23 06:40 Nucleated RBC % (auto) 0.3 % 11/16/23 06:40 Polychromasia 1+ 11/14/23 12:18 Hypochromasia Present 11/14/23 00:37 Basophilic Stippling 1+ 11/14/23 05:27 Tear Drop Cells 1+ 11/14/23 12:18 Ovalocytes 1+ 11/14/23 12:18 PT 11.9 Seconds (9.0-12.0) 11/16/23 06:40 INR 1.1 (0.9-1.1) 11/16/23 06:40 APTT 33 Seconds (21-31) H 11/12/23 18:16 PTT Ratio 1.2 11/12/23 18:16 Heparin Anti-Xa, Unfract < 0.10 IU/ml (0.3-0.7) L 11/15/23 00:47 Sodium 137 mmol/L (136-145) 11/16/23 06:40 Potassium 4.4 mmol/L (3.5-5.1) 11/16/23 06:40 Chloride 108 mmol/L (98-107) H 11/16/23 06:40 Carbon Dioxide 24 mmol/L (21-32) 11/16/23 06:40 Anion Gap 5 (3-11) 11/16/23 06:40 BUN 42 mg/dl (6-23) H 11/16/23 06:40 Creatinine 2.49 mg/dl (0.6-1.4) H 11/16/23 06:40 Est Cr Clr Drug Dosing 32.9 ml/min 11/16/23 06:40 Est GFR ( Amer) 29.6 ml/min 11/16/23 06:40 Est GFR (Non-Af Amer) 25.6 ml/min 11/16/23 06:40 BUN/Creatinine Ratio 16.9 (10-20) 11/16/23 06:40 Glucose 98 mg/dl (70-99(Fasting)) 11/16/23 06:40 Calcium 8.8 mg/dl (8.6-10.3) 11/16/23 06:40 Magnesium 2.0 mg/dl (1.7-2.4) 11/11/23 09:06 Total Bilirubin 1.3 mg/dl (0.2-1.0) H 11/11/23 09:06 AST 16 U/L (13-39) 11/11/23 09:06 ALT 13 U/L (7-52) 11/11/23 09:06 Alkaline Phosphatase 79 U/L (34-104) 11/11/23 09:06 Total Creatine Kinase 61 U/L (30-223) 11/16/23 06:40 Total Protein 6.4 gm/dl (6.0-8.3) 11/11/23 09:06 Albumin 3.6 gm/dl (3.4-5.0) 11/11/23 09:06 Globulin 2.8 gm/dl (2.5-4.0) 11/11/23 09:06 Albumin/Globulin Ratio 1.3 (0.9-2) 11/11/23 09:06 TSH 3.288 uIu/ml (0.300-4.500) 11/11/23 09:06 Urine Color Yellow 11/14/23 02:40 Urine Appearance Clear (Clear) 11/14/23 02:40 Urine pH 6.5 (4.5-7.5) 11/14/23 02:40 Ur Specific [place] 1.010 (1.000-1.030) 11/14/23 02:40 Urine Protein 1+ (Negative) H 11/14/23 02:40 Urine Glucose (UA) Negative (Negative) 11/14/23 02:40 Urine Ketones Negative (Negative) 11/14/23 02:40 Urine Blood Negative (Negative) 11/14/23 02:40 Urine Nitrite Negative (Negative) 11/14/23 02:40 Urine Bilirubin Negative (Negative) 11/14/23 02:40 Urine Urobilinogen Negative (Negative) 11/14/23 02:40 Ur Leukocyte Esterase Negative (Negative) 11/14/23 02:40 Urine WBC (Auto) 0 /hpf (0-5) 11/14/23 02:40 Urine RBC (Auto) 0-4 /hpf (0-4) 11/14/23 02:40 U Hyaline Cast (Auto) 0 /lpf (0-5) 11/14/23 02:40 U Epithel Cells (Auto) 0-5 /lpf (0-5) 11/14/23 02:40 Urine Bacteria (Auto) Negative (Negative) 11/14/23 02:40 Blood Type A Positive 11/15/23 01:47 Blood Type Recheck A Positive 11/11/23 20:49 Antibody Screen NEGATIVE 11/15/23 01:47 Crossmatch See Detail 11/15/23 01:47 Impressions Vascular Ultrasound 11/11/23 08:50 LEFT THIGH ULTRASOUND CLINICAL HISTORY: eval for hematoma COMPARISON STUDY: No previous studies for comparison. TECHNIQUE: Sonography of the left thigh at site of bruising and swelling was performed. FINDINGS: No well-defined fluid collection within the medial left thigh was identified to suggest hematoma. Subcutaneous edema is present. IMPRESSION: 1. No well-defined fluid collection within the left thigh to suggest hematoma by sonography. 2. Subcutaneous edema of the left thigh. ACT 112: Negative or not required by law. Electronically signed by: Reji Tran M.D. 11/11/2023 10:18 AM Venous Doppler Study 11/11/23 08:50 LEFT LOWER EXTREMITY VENOUS DOPPLER HISTORY: Left lower extremity swelling/eccchymosis COMPARISON STUDY: None. FINDINGS: There is normal compressibility, flow, and augmentation within the left lower extremity deep venous system. IMPRESSION: No DVT within the left lower extremity. ACT 112: Negative or not required by law. Electronically signed by: Maxime Quiroz M.D. 11/11/2023 10:19 AM Abdomen/Pelvis CT 11/12/23 08:[address] WITHOUT CONTRAST; CT LEFT FEMUR HISTORY: Acute generalized abdominal and left lower quadrant pain with probable hematoma anemia, r/o retroperitoneal hemorrhage TECHNIQUE: Multiaxial CT images of the abdomen and pelvis and left femur were performed without contrast. A dose lowering technique was utilized adhering to the principles of ALARA. COMPARISON STUDY: Ultrasound 11/11/2023. FINDINGS: CT ABDOMEN AND PELVIS: Mild cardiomegaly with decreased attenuation of the cardiac blood pool, suggestive of anemia. Coronary arterial calcifications. Calcified granuloma of the basal right lower lobe. Mild subsegmental bibasilar atelectasis. Low-s uspicion for a millimeter solid nodule of the lingula, image 28. No free air. The unenhanced spleen, pancreas and left adrenal gland are unremarkable. A 9 mm right adrenal myelolipoma. Unremarkable gallbladder and liver. Mildly atrophic kidneys with cortical thinning. There are several nonobstructing calculi of the bilateral kidneys measuring up to 4 mm on the left and 5 mm on the right. There is a simple 2 cm cyst of the inferior pole right kidney. There are additional subcentimeter lesions of the kidneys including a 9 mm hyperdense lesion of the left kidney on image 159 suggestive of a proteinaceous or hemorrhagic cyst. No ureteral calculi or hydronephrosis. Mild prostatomegaly. Mildly distended urinary bladder. Atherosclerosis of the aorta without aneurysm. No lymphadenopathy. No bowel obstruction or bowel wall thickening. Small fat-filled umbilical hernia with diastases of 2 cm. Colonic diverticulosis. Noninflamed appendix. No acute retroperitoneal hemorrhage is identified. Moderate degeneration of the SI joints. No acute fracture. There is posterior decompression at L1-S1 with posterior interbody tay and screw fusion hardware extending from T11-S2. There is lucency surrounding the screws at almost every level with posterior displacement of the upper hardware, compatible with loosening. CT LEFT FEMUR: There is an acute intramuscular hematoma involving the sartorius, which measures up to approximately 7.9 x 4.9 x 20 cm. No definite active extravasation is identified. Moderate subcutaneous edema/hemorrhage within the thigh. [id number] joint effusion of the knee. No acute fracture or subluxation. There is moderate osteoarthritis of the hip with tricompartmental osteoarthritis of the knee, severe within the medial compartment. IMPRESSION: 1. There is an acute intramuscular hematoma involving the left sartorius measuring up to 20 cm in length with associated moderate subcutaneous edema/hemorrhage of the left thigh. 2. No acute fracture or dislocation. 3. No acute intra-abdominal or intrapelvic abnormality, specifically there is no acute retroperitoneal hemorrhage. 4. Postoperative changes of the spine with extensive hardware loosening. 5. Incidental findings as above. ACT 112: Negative or not required by law. The above report was generated using voice recognition software. It may contain grammatical, syntax or spelling errors. Dictated: 11/12/2023 9:37 AM Transcribed: 11/12/2023 10:02 AM Slim [id number] [email or web address] Electronically signed by: Corey Natarajan M.D. 11/12/2023 10:[address] 11/13/23 09:18 CT SCAN OF THE LEFT FEMUR WITHOUT IV CONTRAST CLINICAL HISTORY: Follow-up hematoma. COMPARISON STUDY: CT scan of the femur dated 11/12/2023. TECHNIQUE: CT scan of the left femur is performed from the bony pelvis to the knee. Images are reviewed in the axial, sagittal, and coronal planes. IV contrast was not administered for this examination. A dose lowering technique was utilized adhering to the principles of ALARA. CT DOSE: 1241.03 mGy.cm FINDINGS: The skeletal structures are osteopenic. There is no evidence of left femoral fracture. The hip and knee joints are grossly maintained noting arthritic change. There is no evidence of avascular necrosis of the left femoral head. No lytic or blastic lesion is seen. There is a knee joint effusion. Subcutaneous and deep soft tissue edema is seen throughout the left thigh. Again seen is a large intramuscular hematoma centered in the sartorius. This measures approximately 20 x 5 x 7 cm and contains hyperdense blood products. There is atherosclerotic calcification of the left femoral artery. There is generalized atrophy of the regional musculature. Diverticulosis is noted in the partially imaged left colon. The prostate gland is enlarged and heterogeneous. The bladder is distended but otherwise normal as imaged. There is no left pelvic sidewall or inguinal lymphadenopathy. IMPRESSION: 1. No significant change in the appearance of a large intramuscular hematoma centered in the left sartorius. This extends approximately 20 cm in craniocaudal length. Ultrasound should be used for further follow-up. 2. Subcutaneous and deep soft tissue edema/fluid is seen throughout the left thigh. 3. No acute bony abnormality is seen involving the femur. 4. Left knee joint effusion. ACT 112: Negative or not required by law. Dictated: 11/13/2023 11:20 AM Transcribed: 11/13/2023 11:43 AM Mario [id number] [email or web address] [id number] Electronically signed by: Mahendra Leonardo M.D. 11/13/2023 12:14 PM Chest X-Ray 11/14/23 01:27 SINGLE VIEW CHEST CLINICAL HISTORY: Hyponatremia FINDINGS: An AP, portable, upright chest radiograph is obtained. No prior studies are available for comparison at the time of dictation. The examination is degraded by portable technique and apical lordotic positioning. The heart appears enlarged. The pulmonary vasculature is noncongested. There is mild bibasilar scarring/atelectasis. No airspace consolidation or large pleural effusion is identified. No pneumothorax is seen. The skeletal structures are osteopenic. The bony thorax is grossly intact. Postoperative change is seen at the thoracolumbar junction. IMPRESSION: No acute cardiopulmonary abnormality. ACT 112: Negative or not required by law. Electronically signed by: Mahendra Leonardo M.D. 11/14/2023 6:[address] 11/15/23 21:03 Exam(s): CT EXTREMITY LEFT LOWER Without Contrast EXAM: CT Left Lower Extremity Without Intravenous Contrast CLINICAL HISTORY: Reason for exam: worsening swelling. TECHNIQUE: Axial computed tomography images of the left lower extremity without intravenous contrast. CTDI is 24.91 mGy and DLP is 1100.87 mGy-cm. Automated exposure control was utilized for the study. A dose lowering technique was utilized adhering to the principles of ALARA. COMPARISON: No relevant prior studies available. FINDINGS: Bones/joints: Moderate to advanced tricompartmental degenerative arthropathy of the knee. No acute fracture. No dislocation. Soft tissues: There is moderate subcutaneous edema. The greater saphenous vein is prominent. There is minimal to mild calcified atherosclerotic plaque IMPRESSION: Moderate subcutaneous edema with prominent greater saphenous vein concerning for possible chronic venous insufficiency. Recommend venous duplex ultrasound and lower extremity venous mapping for further evaluation. No evidence of abscess or abnormal fluid collection. Moderate to advanced tricompartmental degenerative arthropathy of the knee. Electronically signed by: Lola Ladd MD 11/16/23 02:28 AM 11/11/23 08:50 US extremity non-vascular ltd Stat US venous doppler LE LT Stat 11/12/23 08:15 CT Abd and Pelvis [CT abd pelvis wo con] Stat CT leg [CT femur LT wo con] Stat CT leg [CT tib/fib LT wo con] Stat 11/13/23 09:18 CT femur LT wo con Stat CT tib/fib LT wo con Stat 11/15/23 21:03 CT tib/fib LT wo con Stat Pending Results Patient Have Any Pending Studies at Discharge: Yes Discharge Instructions Given to Patient (Per Discharging Provider) PLEASE REFER TO YOUR NEW MEDICATION LIST AND FOLLOW INSTRUCTIONS CAREFULLY. YOUR NEW MEDICATIONS INCLUDE: Doxycycline-for possible left lower leg cellulitis You may resume your usual medication regimen at home. You need to have INR check this week for further advice regarding Coumadin dosing. Please call your Coumadin clinic to schedule for an INR check this week. PLEASE CALL YOUR PRIMARY CARE PHYSICIAN OR RETURN TO THE ER IF WITH WORSENING OF SYMPTOMS, INCLUDING Worsening left lower extremity pain, redness, bruising, swelling, Fever, chills, chest pain, shortness of breath, etc. FOLLOW UP WITH PRIMARY CARE PHYSICIAN IN 1 WEEK. FOLLOW-UP WITH COUMADIN CLINIC THIS WEEK. Total Time Total Time Spent Total Time Spent (In Minutes): >30 minutes
--- NOTE | 2023-11-20 15:27 | Coding Query ---
CODING QUERY To promote full compliance with coding requirements relating to patient care, provider participation is requested in all cases of remote medical coder uncertainty. Please assist us with the question(s) below: Coding Question(s): There is documentation of Acute Blood Loss Anemia and Hematoma of the left lower extremity and, "active bleeding, with documentation as on H&P of, "Acute on chronic anemia in setting of blood loss due to use of anticoagulants and recent left intra-articular hip injection", as well as, "He had a hip injection on Thursday on 11/06 at [facility]. He states he was told he was getting an ultrasound to see where they wanted to inject. He received an injection of lidocaine and dexamethasone. He was not instructed to hold any of his anticoagulants or antiplatelets prior to injection. He is currently on warfarin, asa and brilinta.". The term "in the setting" was used and it it not clear if there was possible postprocedural complication from the injection, and/or adverse effect of anticoagulant medication. Please specify below, in your clinical opinion, regarding active bleeding and hematoma of left lower extremity and acute blood loss anemia: ( ) active bleeding and hematoma of left lower extremity and acute blood loss anemia - likely due to both postprocedural complication from the injection and from adverse effect of anticoagulant medication. ( ) active bleeding and hematoma of left lower extremity and acute blood loss anemia - likely due to adverse effect of anticoagulant medication ( ) active bleeding and hematoma of left lower extremity and acute blood loss anemia - likely due to Other: Please Specify recent hip joint injection in the setting of chronic coumadin use Physician's Response(s): Thank you Rosa Maria Lr Principal Diagnosis: "that condition established after study, to be chiefly responsible for occasioning the admission of the patient to the hospital for care." Co-Existing Principal Diagnosis: "when two or more diagnoses equally meet the criteria for principal diagnosis as determined by the circumstances of admission, diagnostic work up, and/or therapy provided, and the Alphabetic Index, Tabular List, or another coding guideline does not provide sequencing direction, any one of the diagnoses may be sequenced first." "When the physician has documented what appears to be a current diagnosis in the body of the record, but has not included the diagnosis in the final diagnostic statement, the physician should be asked whether the diagnosis should be added." ([facility] 2 QTR90. p3-4) JEFFD
== END 2023-11-16 11:39 | disposition home or self-care (01) | DRG 920 ==
LOC: ED 08:28 → 2N 11:42 → SUATTDRO 11:42 → 2N 13:42